=== PATIENT | female | born 1975 | race Caucasian/White ===

== ENCOUNTER → 2017-11-04 13:54 | Outpatient (CLI) | payer OTHER, SELFPAY ==
[2017-11-12 08:12] LABS: HPV HC, High Risk Positive (Negative)
[2017-11-12 08:24] LABS: HPV Reflexed? YES, CHARGE PATIENT
== END ==
PROVIDERS: Visit Provider Obstetrics & Gynecology
DX: Z12.4 Encounter for screening for malignant neoplasm of cervix (principal)
CPT/HCPCS: 87624; 88175; G0145

== ENCOUNTER → 2017-11-25 11:51 | Outpatient (CLI) | payer OTHER, SELFPAY ==
--- NOTE | 2017-11-25 11:53 | BI_ITS ---
MAMMOGRAPHY - BILATERAL SCREENING REASON FOR EXAM: Female, 42 years old. Routine annual screening examination. PERTINENT HISTORY: Grandmother with breast cancer. TECHNIQUE: Digital bilateral breast chloe (3D mammographic acquisition) in the CC and MLO projections. 2-D mediolateral oblique (MLO) and craniocaudad (CC) views of both breasts were obtained. CAD: Full Field Digital Mammography with Computer Added Detection was performed. COMPARISON: Comparison is made with prior study dated October 22, 2016. FINDINGS: Breast Composition: The breasts are almost entirely fatty. There are no dominant masses or suspicious calcifications. Stable benign-appearing bilateral axillary lymph nodes. No other significant abnormalities are identified. There has been no significant change since the prior study. BI/SCREENING MAMM (CAD), BILAT IMPRESSION: Stable bilateral screening mammogram. Yearly follow-up mammogram recommended. (A) ASSESSMENT CATEGORY: BIRADS Category 2: Benign. A letter regarding these results will be sent to the patient by the facility within 30 days. Approximately 10% of breast cancers are not detected by mammography. A normal mammogram should not delay biopsy of a clinically suspicious abnormality. [id number] Electronically Signed: Valdez Peña MD at 14:08 EDT Tel [phone], Service support ,
== END ==
PROVIDERS: Family Provider Internal Medicine; PCP Internal Medicine; Visit Provider Obstetrics & Gynecology
DX: Z12.31 Encounter for screening mammogram for malignant neoplasm of breast (principal)
CPT/HCPCS: 77063; 77067

== ENCOUNTER → 2018-05-05 11:34 | Outpatient (CLI) | payer OTHER, SELFPAY ==
[2018-05-10 08:24] LABS: HPV HC, High Risk Negative (Negative)
== END ==
PROVIDERS: Family Provider Internal Medicine; PCP Internal Medicine; Visit Provider Obstetrics & Gynecology
DX: R87.610 Atypical squamous cells of undetermined significance on cytologic smear of cervix (ASC-US) (principal)
CPT/HCPCS: 87624; 88175; G0145

== ENCOUNTER → 2018-11-29 10:18 | Outpatient (CLI) | payer OTHER, SELFPAY ==
--- NOTE | 2018-11-29 10:21 | BI_ITS ---
MAMMOGRAPHY - BILATERAL SCREENING REASON FOR EXAM: Female, 43 years old. Routine annual screening examination. PERTINENT HISTORY: Grandmother with breast cancer. TECHNIQUE: Digital bilateral breast carly (3D mammographic acquisition) in the CC and MLO projections. 2-D mediolateral oblique (MLO) and craniocaudad (CC) views of both breasts were obtained. CAD: Full Field Digital Mammography with Computer Added Detection was performed. COMPARISON: Comparison is made with prior study dated November 25, 2017. FINDINGS: Breast Composition: There are scattered areas of fibroglandular density. There are no dominant masses or suspicious calcifications. Stable small benign-appearing bilateral axillary lymph nodes. No other significant abnormalities are identified. There has been no significant change since the prior study. BI/SCREEN MAMM (CAD) W/CARLY BILAT IMPRESSION: Stable bilateral screening mammogram. Yearly follow-up mammogram recommended. (A) ASSESSMENT CATEGORY: BIRADS Category 2: Benign. A letter regarding these results will be sent to the patient by the facility within 30 days. Approximately 10% of breast cancers are not detected by mammography. A normal mammogram should not delay biopsy of a clinically suspicious abnormality. [id number] Electronically Signed: Valdez Peña, at 12:39 EDT , Service support ,
== END ==
PROVIDERS: Family Provider Internal Medicine; PCP Internal Medicine; Referring Provider Obstetrics & Gynecology; Visit Provider Obstetrics & Gynecology
DX: Z12.31 Encounter for screening mammogram for malignant neoplasm of breast (principal)
CPT/HCPCS: 77063; 77067

== ENCOUNTER → 2019-12-07 14:52 | Outpatient (CLI) | payer OTHER, SELFPAY ==
[2019-12-13 03:07] LABS: Age Gdln ACOG Testing 30-65 (.)
[2019-12-13 06:10] LABS: HPV APTIMA, High Risk Negative (Negative); HPV Reflexed? NOT INDICATED
== END ==
PROVIDERS: PCP Internal Medicine; Visit Provider Obstetrics & Gynecology
DX: Z12.4 Encounter for screening for malignant neoplasm of cervix (principal)
CPT/HCPCS: 88175; G0145

== ENCOUNTER → 2020-11-21 11:48 | Outpatient (CLI) | payer OTHER, SELFPAY ==
--- NOTE | 2020-11-21 11:50 | BI_ITS ---
MAMMOGRAPHY - BILATERAL SCREENING REASON FOR EXAM: Female, 45 years old. Routine annual screening examination. PERTINENT HISTORY: Grandmother with breast cancer. TECHNIQUE: Digital bilateral breast carly (3D mammographic acquisition) in the CC and MLO projections. 2-D mediolateral oblique (MLO) and craniocaudad (CC) views of both breasts were obtained. CAD: Full Field Digital Mammography with Computer Added Detection was performed. COMPARISON: Comparison is made with prior study dated 11/29/2018 and 11/25/2017. FINDINGS: Breast Composition: There are scattered areas of fibroglandular density. There are no dominant masses or suspicious calcifications. Stable benign appearing bilateral axillary lymph nodes. No other significant abnormalities are identified. There has been no significant change since the prior study. BI/SCRN MAMM (CAD)W/CARLY BILAT IMPRESSION: Stable bilateral screening mammogram. Yearly follow-up mammogram recommended. (A) ASSESSMENT CATEGORY: BIRADS Category 2: Benign. A letter regarding these results will be sent to the patient by the facility within 30 days. Approximately 10% of breast cancers are not detected by mammography. A normal mammogram should not delay biopsy of a clinically suspicious abnormality. [id number] Electronically Signed: Valdez Peña MD at 13:21 EDT , Service support ,
== END ==
PROVIDERS: PCP Internal Medicine; Referring Provider Student in an Organized Health Care Education/Training Program; Visit Provider Student in an Organized Health Care Education/Training Program
DX: Z12.31 Encounter for screening mammogram for malignant neoplasm of breast (principal)
CPT/HCPCS: 77063; 77067

== ENCOUNTER → 2021-11-27 | Outpatient (CLI) | payer OTHER, SELFPAY ==
--- NOTE | 2021-11-27 09:54 | BI_ITS ---
MAMMOGRAPHY - BILATERAL SCREENING 3-D TOMOSYNTHESIS REASON FOR EXAM: Female, 46 years old. Annual screening mammogram. PERTINENT HISTORY: Maternal grandmother, age not identified. TECHNIQUE: 2-D mammograms and 3-D Tomosynthesis of the breast (s) were performed. CAD was performed. COMPARISON: 11/21/2020, 11/29/2018. FINDINGS: The breast composition is almost entirely fat. Stable axillary lymph nodes. No dense spiculated masses or suspicious microcalcifications are identified. No architectural distortion is identified. There is no skin thickening or retraction. BI/SCRN MAMM (CAD)W/CARLY BILAT IMPRESSION: No interval change and no mammographic signs of malignancy. Routine yearly mammograms recommended. ASSESSMENT CATEGORY: BIRADS Category 2: Benign. A letter regarding these results will be sent to the patient by the facility within 30 days. FOLLOW UP RECOMMENDATION: Yearly follow up mammogram recommended. (A) Approximately 10% of breast cancers are not detected by mammography. A normal mammogram should not delay biopsy of a clinically suspicious abnormality. Electronically Signed: Javi Borjas MD at 15:33 EDT ,
== END | disposition home or self-care (01) ==
LOC: OPBI 09:53
PROVIDERS: PCP Internal Medicine; Referring Provider Student in an Organized Health Care Education/Training Program; Visit Provider Student in an Organized Health Care Education/Training Program
DX: Z12.31 Encounter for screening mammogram for malignant neoplasm of breast (principal)
CPT/HCPCS: 77063; 77067

== ENCOUNTER → 2022-12-04 | Outpatient (CLI) | payer OTHER, SELFPAY ==
--- NOTE | 2022-12-04 13:39 | BI_ITS ---
MAMMOGRAPHY - BILATERAL SCREENING REASON FOR EXAM: Female, 47 years old. Routine annual screening examination. PERTINENT HISTORY: Grandmother with breast cancer. TECHNIQUE: Digital bilateral breast carly (3D mammographic acquisition) in the CC and MLO projections. 2-D mediolateral oblique (MLO) and craniocaudad (CC) views of both breasts were obtained. CAD: Full Field Digital Mammography with Computer Added Detection was performed. COMPARISON: Comparison is made with prior study November 27, 2021. FINDINGS: Breast Composition: The breasts are almost entirely fatty. There are no dominant masses or suspicious calcifications. Stable small benign-appearing bilateral axillary lymph nodes. No other significant abnormalities are identified. There has been no significant change since the prior study. BI/SCRN MAMM (CAD)W/CARLY BILAT IMPRESSION: Stable bilateral screening mammogram. Yearly follow-up mammogram recommended. (A) ASSESSMENT CATEGORY: BIRADS Category 2: Benign. A letter regarding these results will be sent to the patient by the facility within 30 days. Approximately 10% of breast cancers are not detected by mammography. A normal mammogram should not delay biopsy of a clinically suspicious abnormality. [id number] Electronically Signed: Valdez Peña MD at 14:34 EDT ,
== END | disposition home or self-care (01) ==
PROVIDERS: PCP Internal Medicine; Referring Provider Student in an Organized Health Care Education/Training Program; Visit Provider Student in an Organized Health Care Education/Training Program
DX: Z12.31 Encounter for screening mammogram for malignant neoplasm of breast (principal); Z80.3 Family history of malignant neoplasm of breast
CPT/HCPCS: 77063; 77067

== ENCOUNTER → 2023-12-06 | Outpatient (CLI) | payer OTHER, SELFPAY ==
--- NOTE | 2023-12-06 15:56 | BI_ITS ---
MAMMOGRAPHY - BILATERAL SCREENING REASON FOR EXAM: Female, 48 years old. Routine annual screening examination. PERTINENT HISTORY: Grandmother with breast cancer. TECHNIQUE: Digital bilateral breast carly (3D mammographic acquisition) in the CC and MLO projections. 2-D mediolateral oblique (MLO) and craniocaudad (CC) views of both breasts were obtained. CAD: Full Field Digital Mammography with Computer Added Detection was performed. COMPARISON: Comparison is made with prior study December 04, 2022 and November 27, 2021. FINDINGS: Breast Composition: The breasts are almost entirely fatty. There are no dominant masses or suspicious calcifications. Stable small benign-appearing bilateral axillary lymph nodes. No other significant abnormalities are identified. There has been no significant change since the prior study. BI/SCRN MAMM (CAD)W/CARLY BILAT IMPRESSION: Stable bilateral screening mammogram. Yearly follow-up mammogram recommended. (A) ASSESSMENT CATEGORY: BIRADS Category 2: Benign. A letter regarding these results will be sent to the patient by the facility within 30 days. Approximately 10% of breast cancers are not detected by mammography. A normal mammogram should not delay biopsy of a clinically suspicious abnormality. [id number] Electronically Signed: Valdez Peña MD at 8:25 EDT ,
== END | disposition home or self-care (01) ==
LOC: OPBI 15:54
PROVIDERS: PCP Internal Medicine; Referring Provider Internal Medicine; Visit Provider Internal Medicine
DX: Z12.31 Encounter for screening mammogram for malignant neoplasm of breast (principal); Z80.3 Family history of malignant neoplasm of breast
CPT/HCPCS: 77063; 77067

== ENCOUNTER → 2024-12-21 | Outpatient (CLI) | payer OTHER, SELFPAY ==
--- NOTE | 2024-12-21 07:23 | BI_ITS ---
EXAM: SCRN MAMM (CAD)W/CARLY BILAT DATE: 12/21/2024 CLINICAL HISTORY: F, Age 49 y/o , SCREENING Grandmother with breast cancer. TECHNIQUE: SCRN MAMM (CAD)W/CARLY BILAT COMPARISON: Prior exam(s) dated December 07, 2023.. FINDINGS: TISSUE DENSITY: The breasts are almost entirely fatty. Bilateral Breast Mammographic Findings: No significant masses, calcifications or other abnormalities are identified. Stable small benign-appearing bilateral axillary lymph nodes. No suspicious masses, areas of developing architectural distortion, or suspicious calcifications. There has been no significant interval change. BI/SCRN MAMM (CAD)W/CARLY BILAT IMPRESSION: Stable bilateral screening mammogram. OVERALL FINAL ASSESSMENT BI-RADS 2: BENIGN RECOMMENDATION: Routine annual follow-up in 1 Year A letter with findings and recommendations will be mailed to the patient. Reading Location: [id number]
--- OUTSIDE RECORDS SUMMARY | 2024-12-21 07:23 | XMS RPT_ITS | CCD ---
Author Organization [facility] Care Team Providers Care Sales Representative Advertising Name Role Phone YULIANA, DR ANG Beckett Attending Unavaila ble YULIANA, DR ANG Beckett Primary Care Unavaila ble YULIANA, DR ANG Beckett Admitting Unavaila ble Chance Harrell MD Primary Care Provider Chance Harrell MD Primary Care Provider Mccray STRANDING MACHINE OPERATOR HELPER.QUANTITATIVE ANALYST, Daina Unavailable Pedro Luis STRANDING MACHINE OPERATOR HELPER.WEDGER, Aby Unavailable Mccray STRANDING MACHINE OPERATOR HELPER.QUANTITATIVE ANALYST, Daina Unavailable Mccray STRANDING MACHINE OPERATOR HELPER.QUANTITATIVE ANALYST, Daina Unavailable GUANAKITO CHANCE Hannah Referring Unavailable TALAMPAS, CHANCE D Primary Care Unavailable TALAMPELIAS CHANCE D Attending Unavailable TALAMPAS, CHANCE D Primary Care Unavailable TALAMPAS, CHANCE D Primary Care Unavailable KELLY ARMENDARIZ Attending Unavailable Talampelias Chance D Referring Unavailable Talampas Chance D Attending Unavailable Talampelias Chance D Primary Care Unavailable Medications Current Medications Medication Drug Class(es) Dates Sig (Normalized) Sig (Original) amLODIPine 5 mg oral tablet (17 sources) Dihydropyridine Calcium Channel Marni Start: 05-20-19 22 End: 08-30-19 25 take 1 tablet by mouth once daily amLODIPine (NORVASC) 5 mg tablet Indications: Essential hypertension , Encounter for long-term current use of medication Take 1 tablet by mouth once daily. 90 tablet 3 08/30/2024 Active Comment on above: Take 1 tablet by leticia once daily. methylPREDNISolone (1 source) Corticosteroid Start: 10-14-19 23 End: 10-20-19 23 methylPREDNISolone (MEDROL, LES,) 4 mg Dose-Pack Indications: Post-nasal drainage , Acute effusion of right ear Follow dosing instructions, take with food. 21 tablet 0 10/13/2022 10/19/2022 Active Comment on above: Follow dosing instru ctions, take with food. nitrofurantoin, macrocrystals 25 mg / nitrofurantoin, monohydrate 75 mg oral capsule (1 source) Nitrofuran Antibacterial Start: 08-13-19 End: 08-18-19 take 1 capsule by mouth twice daily nitrofurantoin monohydrate and macrocrystal (MACROBID) 100 mg capsule Indications: Urinary tract infection with hematuria, site unspecified Take 1 capsule by mouth two times a day for 5 days. 10 capsule 08/12/2024 08/17/2024 Active norethindrone 0.35 mg oral tablet (13 sources) Start: 07-28-19 End: 08-30-19 take 1 tablet by mouth once daily Norethindrone, Contraceptive, 0.35 mg tablet Take 1 tablet by mouth once daily. 84 tablet 4 08/30/2024 Active Comment on above: Take 1 tablet by leticia th once daily. Problems Active Problems Problem Classification Problem Date Documented Date Episodic/Chronic Essential hypertension (17 sources) Essential hypertension; Translations: [Essential (primary) hypertension] Onset: 04-18-2018 Chronic Other aftercare (5 sources) Patient encounter status; Translations: [Other half-way (current) drug therapy] Episodic Other aftercare (1 source) Long-term current use of drug therapy; Translations: [Other exterminator termite (current) drug therapy] 08-29-2024 Episodic Other aftercare (1 source) Other exterminator termite (current) drug therapy; Translations: [Encounter for long-term current use of medication] Onset: 12-09-2024 Episodic Other nutritional; endocrine; and metabolic disorders (12 sources) Obese class I; Translations: [Obesity, unspecified] Onset: 05-08-2018 05-08-2018 Chronic Other screening for suspected conditions (not mental disorders or infectious disease) (2 sources) Encounter for screening for malignant neoplasm of cervix; Translations: [Encounter for screening mammogram for malignant neoplasm of breast] Onset: 12-08-2024 Episodic Other upper respiratory disease (12 sources) Allergic rhinitis; Translations: [Allergic rhinitis, unspecified] Onset: 08-20-2005 08-20-2005 Chronic Other upper respiratory infections (1 source) Nasal discharge; Translations: [Postnasal drip] Episodic Otitis media and related conditions (1 source) Acute transudative otitis media; Translations: [Other acute nonsuppurative otitis media, right ear] Episodic Screening and history of mental health and substance abuse codes (2 sources) Encounter for screening examination for other mental health and behavioral disorders; Translations: [Encounter for screening for depression] Onset: 12-08-2024 Episodic Unclassified (1 source) CONTACT WITH AND SUSPECTED EXPOSURE TO COVID-19; Translations: [CONTACT WITH AND SUSPECTED EXPOSURE TO COVID-19] Onset: 01-03-2021 Viral infection (1 source) COVID-19; Translations: [COVID-19] Onset: 01-03-2021 Past or Other Problems Problem Classification Problem Date Documented Da te Episodic/Chronic Genitourinary symptoms and ill-defined conditions (3 sources) Scalding pain on urination ; Translations: [Dysuria] Onset: 08-12-2024 08-12-2024 Episodic Open wounds of extremities (12 sources) Avulsion of toenail; Translations: [Unspecified open wound of unspecified toe(s) with damage to nail, initial encounter] Onset: 07-02-2011 07-02-2011 Episodic Unclassified (1 source) CONTACT WITH AND SUSPECTED EXPOSURE TO COVID-19; Translations: [CONTACT WITH AND SUSPECTED EXPOSURE TO COVID-19] Onset: 01-03-2021 Unclassified (1 source) Patient encounter status 11-23-2024 Urinary tract infections (2 sources) Urinary tract infectious disease; Translations: [Urinary tract infection, site not specified] Onset: 08-12-2024 08-12-2024 Episodic Results Test Name Value Interpretation Reference Range Facility CBC panel Auto (Bld)on 12-09 Erythrocyte distribution width (RBC) [Ratio] 13.6 % Normal 11.5-15.0 [facility] Comment on above: Order Comment: Speci men Type: BLOOD SPECIMEN Ordering Facility: [facility] Address: [address] [place] [address] Performed By: #### 5 8410-2 #### [facility] CLIA [id number] [address] [place] [address] [place] Hematocrit (Bld) [Volume fraction] 41.3 % Normal 36.0-46.0 [facility] Comment on above: Order Comment: Speci men Type: BLOOD SPECIMEN Ordering Facility: [facility] Address: [address] [place] [address] Performed By: #### 5 8410-2 #### [facility] CLIA [id number] [address] [place] [address] [place] Hemoglobin (Bld) [Mass/Vol] 13.7 g/dL Normal 11.5-15.5 [facility] Comment on above: Order Comment: Speci men Type: BLOOD SPECIMEN Ordering Facility: [facility] Address: [address] [place] [address] Performed By: #### 5 8410-2 #### [facility] CLIA [id number] [address] [place] [address] [place] MCH (RBC) [Entitic mass] 29.8 pg Normal 26.0-34.0 [facility] Comment on above: Order Comment: Speci men Type: BLOOD SPECIMEN Ordering Facility: [facility] Address: [address] [place] [address] Performed By: #### 5 8410-2 #### [facility] CLIA [id number] [address] [place] [address] [place] MCHC (RBC) [Mass/Vol] 33.2 g/dL Normal 30.5-36.0 [facility] Comment on above: Order Comment: Speci men Type: BLOOD SPECIMEN Ordering Facility: [facility] Address: [address] [place] [address] Performed By: #### 5 8410-2 #### [facility] CLIA [id number] [address] [place] [address] [place] MCV (RBC) [Entitic vol] 90.0 fL Normal 80.0-100.0 [facility] Comment on above: Order Comment: Speci men Type: BLOOD SPECIMEN Ordering Facility: [facility] Address: [address] [place] [address] Performed By: #### 5 8410-2 #### [facility] CLIA [id number] [address] [place] [address] [place] Nucleated RBC (Bld) [#/Vol] 10*3/uL Normal <0.01 [facility] Comment on above: Order Comment: Speci men Type: BLOOD SPECIMEN Ordering Facility: [facility] Address: [address] [place] [address] Performed By: #### 5 8410-2 #### [facility] CLIA [id number] [address] [place] [address] [place] Platelet mean volume (Bld) [Entitic vol] 11.5 fL Normal 9.0-12.7 [facility] Comment on above: Order Comment: Speci men Type: BLOOD SPECIMEN Ordering Facility: [facility] Address: [address] [place] [address] Performed By: #### 5 8410-2 #### [facility] CLIA [id number] [address] [place] [address] [place] Platelets (Bld) [#/Vol] 255 10*3/uL Normal 150-400 [facility] Comment on above: Order Comment: Speci men Type: BLOOD SPECIMEN Ordering Facility: [facility] Address: [address] [place] [address] Performed By: #### 5 8410-2 #### [facility] CLIA [id number] [address] [place] [address] [place] RBC (Bld) [#/Vol] 4.59 10*6/uL Normal 3.90-5.20 [facility] Comment on above: Order Comment: Speci men Type: BLOOD SPECIMEN Ordering Facility: [facility] Address: [address] [place] [address] Performed By: #### 5 8410-2 #### [facility] CLIA [id number] [address] [place] [address] [place] WBC (Bld) [#/Vol] 5.12 10*3/uL Normal 3.70-11.00 [facility] Comment on above: Order Comment: Speci men Type: BLOOD SPECIMEN Ordering Facility: [facility] Address: [address] [place] [address] Performed By: #### 5 8410-2 #### [facility] CLIA [id number] [address] [place] [address] [place] Comprehensive metabolic 2000 panelon 12-09-2024 Albumin [Mass/Vol] 4.1 g/dL Normal 3.9-4.9 [facility] Comment on above: Order Comment: Speci men Type: BLOOD SPECIMEN Ordering Facility: [facility] Address: [address] [place] [address] Performed By: #### 2 4331-1, 20570-7 #### [facility] CLIA [id number] [address] [place] [address] [place] ALP [Catalytic activity/Vol] 82 U/L Normal 34-123 [facility] Comment on above: Order Comment: Speci men Type: BLOOD SPECIMEN Ordering Facility: [facility] Address: [address] [place] [address] Performed By: #### 2 4331-1, 99355-9 #### [facility] CLIA [id number] [address] [place], [place] [address] [place] ALT [Catalytic activity/Vol] 12 U/L Normal 7-38 [facility] Comment on above: Order Comment: Speci men Type: BLOOD SPECIMEN Ordering Facility: [facility] Address: [address] [place] [address] Performed By: #### 2 4331-1, 12797-6 #### [facility] CLIA [id number] [address] [place], [place] [address] [place] Anion gap [Moles/Vol] 13 mmol/L Normal 8-15 [facility] Comment on above: Order Comment: Speci men Type: BLOOD SPECIMEN Ordering Facility: [facility] Address: [address] [place] [address] Performed By: #### 2 4331-1, 77185-0 #### [facility] CLIA [id number] [address] [place] [address] [place] AST [Catalytic activity/Vol] 21 U/L Normal 13-35 [facility] Comment on above: Order Comment: Speci men Type: BLOOD SPECIMEN Ordering Facility: [facility] Address: [address] [place] [address] Performed By: #### 2 4331-1, 07987-1 #### [facility] CLIA [id number] [address] [place] [address] [place] Bilirubin [Mass/Vol] 0.5 mg/dL Normal 0.2-1.3 [facility] Comment on above: Order Comment: Speci men Type: BLOOD SPECIMEN Ordering Facility: [facility] Address: [address] [place] [address] Performed By: #### 2 4331-1, 55864-3 #### [facility] CLIA [id number] [address] [place] [address] [place] Calcium [Mass/Vol] 9.1 mg/dL Normal 8.5-10.2 [facility] Comment on above: Order Comment: Speci men Type: BLOOD SPECIMEN Ordering Facility: [facility] Address: [address] [place] [address] Performed By: #### 2 4331-1, 06624-8 #### [facility] CLIA [id number] [address] [place], [place] [address] [place] Chloride [Moles/Vol] 103 mmol/L Normal 98-107 [facility] Comment on above: Order Comment: Speci men Type: BLOOD SPECIMEN Ordering Facility: [facility] Address: [address] [place] [address] Performed By: #### 2 4331-1, 62034-2 #### [facility] CLIA [id number] [address] [place], [place] [address] [place] CO2 [Moles/Vol] 21 mmol/L Low 22-30 [facility] Comment on above: Order Comment: Speci men Type: BLOOD SPECIMEN Ordering Facility: [facility] Address: [address] [place] [address] Performed By: #### 2 4331-1, 59296-0 #### [facility] CLIA [id number] [address] [place] [address] [place] Creatinine [Mass/Vol] 0.91 mg/dL Normal 0.58-0.96 [facility] Comment on above: Order Comment: Speci men Type: BLOOD SPECIMEN Ordering Facility: [facility] Address: [address] [place] [address] Performed By: #### 2 4331-1, 79692-1 #### [facility] CLIA [id number] [address] [place] [address] [place] eGFRcr SerPlBld CKD-EPI 2020 77 mL/min/1.73m??? Normal >=60 [facility] Comment on above: Order Comment: Speci men Type: BLOOD SPECIMEN Ordering Facility: [facility] Address: [address] [place] [address] Result Comment: Vivi mated Glomerular Filtration Rate (eGFR) is calculated using the 2020 CKD-EPI creatinine equation. This equation utilizes serum creatinine, sex, and age as parameters. The creatinine assay has traceable calibration to isotope dilution-mass spectrometry. Refer to KDIGO guidelines for clinical interpretation. In patients with unstable renal function, e.g. those with acute kidney injury, the eGFR may not accurately reflect actual GFR. Performed By: #### 2 4331-1, 70109-7 #### [facility] CLIA [id number] [address] [place], [place] [address] [place] Glucose [Mass/Vol] 86 mg/dL Normal 74-99 [facility] Comment on above: Order Comment: Speci men Type: BLOOD SPECIMEN Ordering Facility: [facility] Address: [address] [place] [address] Result Comment: The Stateless Diabetes Association (ADA) provides guidance for cutoff values for fasting glucose and random glucose. The ADA defines fasting as no caloric intake for at least 8 hours. Fasting plasma glucose results between 100 to 125 mg/dL indicate increased risk for diabetes (prediabetes). Fasting plasma glucose results greater than or equal to 126 mg/dL meet the criteria for diagnosis of diabetes. In the absence of unequivocal hyperglycemia, results should be confirmed by repeat testing. In a patient with classic symptoms of hyperglycemia or hyperglycemic crisis, random plasma glucose results greater than or equal to 200 mg/dL meet the criteria for diagnosis of diabetes. Reference: Standards of Medical Care in Diabetes 2016, Stateless Diabetes Association. Diabetes Care. 2016.39(Suppl 1). Performed By: #### 2 4331-1, 25291-4 #### [facility] CLIA [id number] [address] [place] [address] [place] Potassium [Moles/Vol] 4.5 mmol/L Normal 3.7-5.1 [facility] Comment on above: Order Comment: Ashai men Type: BLOOD SPECIMEN Ordering Facility: [facility] Address: [address] [place] [address] Performed By: #### 2 4331-1, 77176-9 #### [facility] CLIA [id number] [address] [place], [place] [address] [place] Protein [Mass/Vol] 6.7 g/dL Normal 6.3-8.0 [facility] Comment on above: Order Comment: Ashai men Type: BLOOD SPECIMEN Ordering Facility: [facility] Address: [address] [place], [place] [address] Performed By: #### 2 4331-1, 75832-2 #### [facility] CLIA [id number] [address] [place], [place] [address] [place] Sodium [Moles/Vol] 137 mmol/L Normal 136-144 [facility] Comment on above: Order Comment: Speci men Type: BLOOD SPECIMEN Ordering Facility: [facility] Address: [address] [place] [address] Performed By: #### 2 4331-1, 02926-9 #### [facility] CLIA [id number] [address] [place] [address] [place] Urea nitrogen [Mass/Vol] 16 mg/dL Normal 7-21 [facility] Comment on above: Order Comment: Speci men Type: BLOOD SPECIMEN Ordering Facility: [facility] Address: [address] [place] [address] Performed By: #### 2 4331-1, 60468-4 #### [facility] CLIA [id number] [address] [place] [address] [place] Lipid 1996 panelon 5 Cholesterol [Mass/Vol] 184 mg/dL Normal <200 [facility] Comment on above: Order Comment: Speci men Type: BLOOD SPECIMEN Ordering Facility: [facility] Address: [address] [place] [address] Result Comment: <200 mg/dL, Desirable 200-239 mg/dL, Borderline high >239 mg/dL, High Performed By: #### 2 4331-1, 90260-3 #### [facility] CLIA [id number] [address] [place], [place] [address] [place] Cholesterol in HDL [Mass/Vol] 48 mg/dL Normal >39 [facility] Comment on above: Order Comment: Speci men Type: BLOOD SPECIMEN Ordering Facility: [facility] Address: [address] [place] [address] Result Comment: 40-5 9 mg/dL, Acceptable >59 mg/dL, High: Negative risk factor for coronary heart disease <40 mg/dL, Low: Positive risk factor for coronary heart disease Performed By: #### 2 4331-1, 17762-3 #### [facility] CLIA [id number] [address] [place] [address] [place] Cholesterol in LDL [Mass/Vol] 124 mg/dL High <100 [facility] Comment on above: Order Comment: Speci men Type: BLOOD SPECIMEN Ordering Facility: [facility] Address: [address] [place] [address] Result Comment: <100 mg/dL, Optimal 100-129 mg/dL, Near optimal/above optimal 130-159 mg/dL, Borderline high 160-189 mg/dL, High >189 mg/dL, Very high Secondary prevention optimal LDL Cholesterol levels are recommended to be <70 mg/dL LDL cholesterol is calculated using the Kang-NIH equation. Performed By: #### 2 4331-1, #### [facility] CLIA [id number] [address] [place] [address] [place] Cholesterol in LDL/Cholesterol in HDL [Mass ratio] 2.58 {ratio} High <2.54 [facility] Comment on above: Order Comment: Ashai men Type: BLOOD SPECIMEN Ordering Facility: [facility] Address: [address] [place] [address] Result Comment: Refe rence: 1. National Cholesterol Education Program ATP III Guideline At-A-Glance Quick Desk Reference: National Heart, Lung, and Blood [place]. National Institutes of Health. 2001: NIH Publication No. 01-3305. 2. An International Atherosclerosis Society position paper: global recommendations for the management of dyslipidemia: executive summary, Atherosclerosis. 2014: 232(2):410-413. Performed By: #### 2 4331-1, 87595-7 #### [facility] CLIA [id number] [address] [place] [address] [place] Cholesterol in VLDL [Mass/Vol] 11 mg/dL Normal <30 [facility] Comment on above: Order Comment: Ashai men Type: BLOOD SPECIMEN Ordering Facility: [facility] Address: [address] [place] [id number] Performed By: #### 2 4331-1, #### [facility] CLIA [id number] [address] [place], [place] [address] [place] Cholesterol non HDL [Mass/Vol] 136 mg/dL High <130 [facility] Comment on above: Order Comment: Speci men Type: BLOOD SPECIMEN Ordering Facility: [facility] Address: [address] [place] [address] Result Comment: <130 mg/dL, Optimal 130-159 mg/dL, Near optimal/above optimal 160-189 mg/dL, Borderline high 190-219 mg/dL, High >219 mg/dL, Very high Secondary prevention optimal non HDL Cholesterol levels are recommended to be <100 mg/dL Performed By: #### 2 4331-1, #### [facility] CLIA [id number] [address] [place] [address] [place] Cholesterol.total/Ch olesterol in HDL [Mass ratio] 3.83 {ratio} Normal <5.10 [facility] Comment on above: Order Comment: Speci men Type: BLOOD SPECIMEN Ordering Facility: [facility] Address: [address] [place] [address] Performed By: #### 2 4331-1, #### [facility] CLIA [id number] [address] [place] [address] [place] FASTING TIME 12 hrs Normal [facility] Comment on above: Order Comment: Speci men Type: BLOOD SPECIMEN Ordering Facility: [facility] Address: [address] [place], [place] [address] Performed By: #### 2 4331-1, #### [facility] CLIA [id number] [address] [place] [address] [place] Triglyceride [Mass/Vol] 64 mg/dL Normal <150 [facility] Comment on above: Order Comment: Speci men Type: BLOOD SPECIMEN Ordering Facility: [facility] Address: [address] [place] [address] Result Comment: <150 mg/dL, Normal 150-199 mg/dL, Borderline high 200-499 mg/dL, High >499 mg/dL, Very high Performed By: #### 2 4331-1, 43001-4 #### [facility] CLIA [id number] [address] [place] [address] [facility] [place] HIGH RISK HUMAN [place] GUY (HPV), PCR FOR DETECTION AND GENOTYPINGon 12-08-2024 HPV 16 Ag Ql (Unsp spec) Not detected Normal Not detected [facility] Comment on above: Order Comment: Speci men Type: FLUID SPECIMEN Ordering Facility: [facility] Address: [address] [place] [address] Performed By: #### H PVHRT #### [facility] CLIA [id number] [address] [place] [address] [place] HPV 18 Ag Ql (Unsp spec) Not detected Normal Not detected [facility] Comment on above: Order Comment: Speci men Type: FLUID SPECIMEN Ordering Facility: [facility] Address: [address] [place] [address] Performed By: #### H PVHRT #### [facility] CLIA [id number] [address] [place] [address] [place] HPV 31+33+35+39+45+51+52 +56+58+59+66+68 DNA TOYA+probe Ql (Cvx) Not detected Normal Not detected [facility] Comment on above: Order Comment: Speci men Type: FLUID SPECIMEN Ordering Facility: [facility] Address: [address] [place] [address] Result Comment: High Risk HPV Other Type includes HPV types 31, 33, 35, 39, 45, 51, 52, 56, 58, 59, 66 and 68. Performed By: #### H PVHRT #### [facility] CLIA [id number] [address] [place] [address] [place] PAP TESTon 12-08-2024 ADEQUACY Normal [facility] Comment on above: Order Comment: Speci men Type: FLUID SPECIMEN Ordering Facility: [facility] Address: [address] [place] [address] Result Comment: Sati sfactory for interpretation. Transformation zone present Performed By: #### L [id number] #### [facility] CLIA [id number] [address] [place] [address] [place] CASE REPORT Normal [facility] Comment on above: Order Comment: Speci men Type: FLUID SPECIMEN Ordering Facility: [facility] Address: [address] [place] [address] Result Comment: Gyne [facility] Report Case: [id number] Authorizing Provider: Chance Harrell MD Collected: 12/08/2024 05:28 PM Ordering Location: [facility] [place] Received: 12/09/2024 07:35 AM First Screen: Surekha Cordero, CT, ASCP Specimen: Pap Test, ThinPrep, Cervix Performed By: #### L [id number] #### [facility] CLIA [id number] [address] [place] [address] [place] CLINICAL HISTORY, CYTOLOGY, REGULATORY INTERNSHIP Routine Exam Normal [facility] Comment on above: Order Comment: Speci men Type: FLUID SPECIMEN Ordering Facility: [facility] Address: [address] [place] [address] Performed By: #### L [id number] #### [facility] CLIA [id number] [address] [place] [address] [place] FINAL PERFORMING LAB Normal [facility] Comment on above: Order Comment: Speci men Type: FLUID SPECIMEN Ordering Facility: [facility] Address: [address] [place] [address] Result Comment: Tech nical component, dye expert screening performed at: [facility], [address] [place] [address] CLIA: [id number] Diagnostic interpretation performed at: [facility], [address] [place] [address] [place] [address] CLIA# [id number] Comber Setter: Claus Antoine MD Performed By: #### L [id number] #### [facility] CLIA [id number] [address] [place] [address] [place] INTERPRETATION, CYTOLOGY, REGULATORY INTERNSHIP Normal [facility] Comment on above: Order Comment: Speci men Type: FLUID SPECIMEN Ordering Facility: [facility] Address: [address] [place], [place] [id number] Result Comment: Nega tive for intraepithelial lesion or malignancy. at 1251 EDT Performed By: #### L [id number] #### [facility] CLIA [id number] [address] [place] [address] [place] LMP 11/01/2024 Normal [facility] Comment on above: Order Comment: Speci men Type: FLUID SPECIMEN Ordering Facility: [facility] Address: [address] [place] [address] Performed By: #### L [id number] #### [facility] CLIA [id number] [address] [place] [address] [place] PAP DISCLAIMER COMMENT The Pap Smear is a screening test for cervical cancer. False negative results occur with all screening tests, emphasizing the need for rescreening at recommended intervals, and clinical correlation. Normal [facility] Comment on above: Order Comment: Speci men Type: FLUID SPECIMEN Ordering Facility: [facility] Address: [address] [place], [place] [id number] Performed By: #### L [id number] #### [facility] CLIA [id number] [address] [place] [address] [place] PAP CLEAT MAKER COMMENT This specimen has be en analyzed by the FDA-approved Capt[employer]nSocial System, which uses digital imaging and an enhanced artificial intelligence image analysis algorithm to identify lester of interest on the microscopic slide, to assist the technician terminal and repeater and pathologist in evaluating cells on ThinPrep Pap tests. Following analysis, lester of interest on the microscopic slide selected by the algorithm are reviewed by a technician terminal and repeater. If a sample requires hierarchical review, the pathologist will review the same lester of interest selected by the algorithm prior to final interpretation. Normal [facility] Comment on above: Order Comment: Speci men Type: FLUID SPECIMEN Ordering Facility: [facility] Address: [address] [place] [address] Performed By: #### L [id number] #### [facility] CLIA [id number] [address] [place] [address] [facility] 11-23-2024 CNPN Telephone (INTMWS) DIVYA SKELTON ([id number]) 1975 F Date Time Provider Department 11/23/24 CHANCE HARRELL INTWS During your visit today, we recorded the following information about you: Chinedu Butcher RN 11/23/2024 11:01 AM Signed Pt requesting mammogram order to be sent over to [facility]. Order pended. Pt would like to get it scheduled as close to 12/05/24 as possible. Please call pt when order has been faxed over. Chinedu Butcher RN 11/23/2024 4:34 PM Signed Demographics sheet and order faxed over to [facility] scheduling [phone]. Called and notified pt that order was faxed. Allergies As of Date: 11/23/2024 (No Known Allergies) Date Reviewed: 08/12/2024 Reviewed by: Thuy Larkin LPN - Fully Assessed Reason for Visit: Orders [681] Cmt: Mammogram for [facility] Primary Visit Diagnosis:Encounter for screening mammogram for breast cancer [Z12.31] Order(s):AAYUSH CARROLL [[id number]] Order #: [id number] FUTURE Prescriptions as of 11/23/2024 - Norethindrone, Contraceptive, 0.35 mg tablet Take 1 tablet by mouth once daily. - amLODIPine (NORVASC) 5 mg tablet Take 1 tablet by mouth once daily. Problem List As Of Date 11/23/2024 Noted Resolved ALLERGIC RHINITIS NOS [J30.9] 08/20/2005 Avulsion of toenail [S91.209A] 07/02/2011 Essential hypertension [I10] 04/18/2018 Obesity, Class I, BMI 30-34.9 [E66.811] 05/08/2018 Encounter Status:Closed by CHINEDU BUTCHER on 11/23/24 [facility] Bacteria Ur Culton Bacteria identified Cx Nom (U) ORGANISM ID: 1 >=100,000 CFU/ml Escherichia coli ORGANISM ID: 1 (ESCHERICHIA COLI) -- ANTIBIOTIC INTERPRETATION SEYMOUR STATUS REFERENCE RANGE -- Ampicillin S <=2 F Susceptible <=8 , Intermediate >8 , Resistant >16 Cefazolin S <=4 F Susceptible 0-16 , Intermediate <0 or >16 , Resistant >16 For uncomplicated urinary tract infections, cefazolin results can be used to predict susceptibility or resistance to cephalexin. Ceftriaxone S <=1 F Susceptible <=1 , Intermediate >1 , Resistant >=4 Cefepime S <=1 F Susceptible <=2 , Susceptible-Dose Dependent >2 , Resistant >=16 Ertapenem S <=0.5 F Susceptible <=0.5 , Intermediate >.5 , Resistant >1 Meropenem S <=0.25 F Susceptible <=1 , Intermediate >1 , Resistant >2 Ampicillin/Sulbact S <=2 F Susceptible <=8 , Intermediate >8 , Resistant >16 Piperacillin/Tazobac S <=4 F Susceptible <16 , Susceptible-Dose Dependent >=16 , Resistant >=32 Gentamicin S <=1 F Susceptible <=2 , Intermediate >2 , Resistant >=8 Tobramycin S <=1 F Susceptible <4 , Intermediate >=4 , Resistant >=8 Trimeth sulfameth S <=20 F Susceptible <=40 , Resistant >40 Ciprofloxacin S <=0.25 F Susceptible <0.5 , Intermediate >=.5 , Resistant >=1 Nitrofurantoin S <=16 F Susceptible <=32 , Intermediate >32 , Resistant >64 Abnormal [facility] Comment on above: Performed By: #### 6 30-4 #### [facility] CLIA [id number] [address] [place] [address] [facility] CNOVon 08-12-2024 CNOV Office Visit (UCWSTR ) DIVYA SKELTON ([id number]) 1975 F Date Time Provider Department 08/12/24 8:30 AM KELLY ARMENDARIZ [facility] During your visit today, we recorded the following information about you: Temperature Pulse Respiration Blood pressure 98.1 degrees 89/minute 16/minute 142/80 Weight 95.8 kg Kelly Armendariz APRN.WEDGER 08/12/2024 9:09 AM Signed [facility] Subjective Divya Skelton is a 48 year old female. Patient presents with: burning with urination: Burning x 3 days HPI Divya Skelton is a 48 year old female who presents with UTI symptoms for the past 3 days. She took cranberry pills and AZO and symptoms are slightly better today. She has not had fever, chills, nausea, vomiting, back pain or abdominal pain. Review of Systems Constitutional: Negative for chills and fever. Respiratory: Negative. Cardiovascular: Negative. Gastrointestinal: Negative for abdominal pain, nausea and vomiting. Genitourinary: Positive for dysuria, frequency and urgency. Negative for difficulty urinating, flank pain and hematuria. Musculoskeletal: Negative for back pain. Skin: Negative for rash. Objective BP 142/80 Pulse 89 Temp 36.7 ?C (98.1 ?F) (Tympanic) Resp 16 Wt 95.8 kg (211 lb 3.2 oz) LMP 09/08/2022 (Approximate) SpO2 100% BMI (P) 35.69 kg/m? PAST MEDICAL HISTORY Diagnosis Date - ALLERGIC RHINITIS NOS 08/20/2005 - Essential hypertension 04/18/2018 PAST SURGICAL HISTORY Procedure Laterality Date - DELIVERY ONLY , low cervical - COLONOSCOPY 07/23/2021 repeat in 10 years ALLERGIES Patient has no known allergies. MEDICATIONS - Norethindrone, Contraceptive, 0.35 mg tablet Take 1 tablet by mouth once daily. - amLODIPine (NORVASC) 5 mg tablet Take 1 tablet by mouth once daily. - nitrofurantoin monohydrate and macrocrystal (MACROBID) 100 mg capsule Take 1 capsule by mouth two times a day for 5 days. FAMILY HISTORY Problem Relation Age of Onset - Diabetes Father on insulin - Colon Polyps Sister ?TA since had to do after 1 year - Breast Cancer Maternal Grandmother Social History Tobacco Use - Smoking status: Never - Smokeless tobacco: Never Substance Use Topics - Alcohol use: Yes Comment: rare use, no current - Drug use: No Physical Exam Vitals and nursing note reviewed. Constitutional: General: She is not in acute distress. Appearance: Normal appearance. She is not ill-appearing. Cardiovascular: Rate and Rhythm: Normal rate and regular rhythm. Heart sounds: Normal heart sounds. Pulmonary: Effort: Pulmonary effort is normal. No respiratory distress. Breath sounds: Normal breath sounds. No wheezing or rales. Abdominal: General: There is no distension. Palpations: Abdomen is soft. There is no mass. Tenderness: There is no abdominal tenderness. There is no right CVA tenderness, left CVA tenderness or guarding. Skin: General: Skin is warm and dry. Neurological: Mental Status: She is alert. {ASSESSMENT/PLAN: 1. Burning with urination - ICD9: 788.1, ICD10: R30.0 (primary diagnosis) acute - UA positive for stephan esterase, hematuria, and nitrates - Send urine for culture - Begin treatment with Macrobid 100 mg BID for 5 days - UA DIP, URINE (POC) 2. Urinary tract infection with hematuria, site unspecified - ICD9: 599.0, 599.70, ICD10: N39.0, R31.9 - NITROFURANTOIN MONOHYDRATE AND MACROCRYSTAL 100 MG ORAL CAP - Follow-up with your PCP in 3-5 days if symptoms have not improved or sooner if symptoms worsen - Discussed red flags and need for immediate medical evaluation if any occur. - Discussed supportive care treatment with fluids, rest and analgesia. - Discussed expected course of illness Kelly Armendariz APRN.CNP History and Record Review External record(s) reviewed: prior labs/imaging. Findings from review of prior labs/imaging: Previous Renal Function Panel Reviewed No results within last 365 days. Disposition The patient was discharged. OTC Medications were advised: Kelly Thomas APRN.CNP 08/12/2024 9:01 AM Addendum ASSESSMENT/PLAN: 1. Burning with urination - ICD9: 788.1, ICD10: R30.0 (primary diagnosis) acute - UA positive for stephan esterase, hematuria, and nitrates - Send urine for culture - Begin treatment with Macrobid 100 mg BID for 5 days - UA DIP, URINE (POC) 2. Urinary tract infection with hematuria, site unspecified - ICD9: 599.0, 599.70, ICD10: N39.0, R31.9 - NITROFURANTOIN MONOHYDRATE AND MACROCRYSTAL 100 MG ORAL CAP - Follow-up with your PCP in 3-5 days if symptoms have not improved or sooner if symptoms worsen - Discussed red flags and need for immediate medical evaluation if any occur. - Discussed supportive care treatment with fluids, rest and analgesia. - Discussed expected course of illness Kelly Armendariz APRN.CNP (more content not included)... Normal [facility] UA DIP, URINE (POC)on 2024 BILIRUBIN UA (POCT) Negative Negative [facility] CLARITY UA (POCT) Clear [facility] COLOR UA (POCT) Yellow [facility] GLUCOSE UA (POCT) Negative Negative mg/dL [facility] Hemoglobin Ql (U) Moderate Abnormal Negative [facility] Interpretation and review of laboratory results Abnormal [facility] KETONE UA (POCT) Negative Negative mg/dL [facility] LEUKOCYTES UA (POCT) Small Abnormal Negative [facility] NITRITE UA (POCT) Positive Abnormal Negative [facility] PH UA (POCT) 5.5 4.5 - 8.0 [facility] Protein Ql (U) Negative Negative mg/dL [facility] SPECIFIC GRAVITY UA (POCT) <=1.005 Abnormal 1.005 - 1.030 [facility] UROBILINOGEN UA (POCT) 0.2 Normal E.U./dL [facility] Location:[address] POINT OF CARE [facility] CORONAVIRUS PCR [CCL]on 12-25 SARS-CoV-2 (COVID-19) RNA TOYA+probe Ql (Unsp spec) Nasopharyngeal Swab Normal [facility] Comment on above: Performed By: #### 2 [id number] #### [facility],[address] [place] [address] SARS-CoV-2 (COVID-19) RNA TOYA+probe Ql (Unsp spec) Positive Abnormal [facility] Comment on above: Result Comment: Posi tive for COVID19 (SARS CoV2) by RT-PCR or equivalent method.(*) This test was developed and its performance characteristics determined by [facility]'s [facility] and [facility] [place]. This test has been authorized by FDA under an Emergency Use Authorization (EUA). This test has been validated in accordance with the FDA's Guidance Document Policy for Diagnostics Testing in Laboratories Certified to Perform High Complexity Testing under CLIA prior to Emergency use Authorization for Coronavirus Disease 2019 during the Public Health Emergency issued on June 24, 2019. Test performed by [facility], [facility] [place], [address] [address]. Performed By: #### 2 [id number] #### [facility],[address] [place] [address] Coronavirus 2019on 1 SARS-CoV-2 (COVID-19) RNA TOYA+probe Ql (Unsp spec) Abnormal Negative for COVID19 (SARS CoV2) by RT-PCR or equival [facility] Comment on above: Result Comment: Posi tive for This test was developed and its performance characteristics determined by [facility]'s [facility] Laboratory [facility]. This test has been authorized by [facility] under an Emergency Use Authorization (EUA). This test has been validated in accordance with the FDA's Guidance Document Policy for Diagnostics Testing in Laboratories Certified to Perform High Complexity Testing under CLIA prior to Emergency use Authorization for Coronavirus Disease 2019 during the Public Health Emergency issued on June 24, 2019. Test performed by [facility], [facility], [facility] [address]. COVID19 (SARS This test was developed and its performance characteristics determined by [facility]. This test has been authorized by FDA under an Emergency Use Authorization (EUA). This test has been validated in accordance with the FDA's Guidance Document Policy for Diagnostics Testing in Laboratories Certified to Perform High Complexity Testing under CLIA prior to Emergency use Authorization for Coronavirus Disease 2019 during the Public Health Emergency issued on June 24, 2019. Test performed by [facility], [facility], [facility] [place] [address]. CoV2) by RT-PCR This test was developed and its performance characteristics determined by [facility]'s [facility]. This test has been authorized by FDA under an Emergency Use Authorization (EUA). This test has been validated in accordance with the FDA's Guidance Document Policy for Diagnostics Testing in Laboratories Certified to Perform High Complexity Testing under CLIA prior to Emergency use Authorization for Coronavirus Disease 2019 during the Public Health Emergency issued on June 24, 2019. Test performed by [facility], [facility] and [facility] [place], [address] [id number]. or equivalent This test was developed and its performance characteristics determined by [facility]'s [facility] and [facility] [place]. This test has been authorized by [facility] under an Emergency Use Authorization (EUA). This test has been validated in accordance with the FDA's Guidance Document Policy for Diagnostics Testing in Laboratories Certified to Perform High Complexity Testing under CLIA prior to Emergency use Authorization for Coronavirus Disease 2019 during the Public Health Emergency issued on June 24, 2019. Test performed by [facility], [facility], [address] [id number]. ethod.(*) This test was developed and its performance characteristics determined by [facility]'s [facility] and [facility] [place]. This test has been authorized by FDA under an Emergency Use Authorization (EUA). This test has been validated in accordance with the FDA's Guidance Document Policy for Diagnostics Testing in Laboratories Certified to Perform High Complexity Testing under CLIA prior to Emergency use Authorization for Coronavirus Disease 2019 during the Public Health Emergency issued on June 24, 2019. Test performed by [facility], [facility], [address] [id number]. Coronavirus 2019on 1 SARS-CoV-2 (COVID-19) RNA TOYA+probe Ql (Unsp spec) ACUTE COORDINATOR Normal [facility] Lab Vital Signs Date Time Vital Sign Value Performing Clinician Faci lity 08-12-2024 08:35-0400 Body mass index (BMI) [Ratio] 35.4 kg/m2 Kelly Armendariz APRN.TAYLOR Work Phone: [facility] 08-12-2024 08:35-0400 Body temperature 98.1 [degF] Kelly Armendariz APRN.CNP Work Phone: [facility] 08-12-2024 08:35-0400 Body weight 95.8 kg Kelly Armendariz APRN.CNP Work Phone: [facility] 08-12-2024 08:35-0400 Diastolic blood pressure 80 mm[Hg] Kelly Praisler-Wood STRANDING MACHINE OPERATOR HELPER.WEDGER Work Phone: [facility] 08-12-2024 08:35-0400 Heart rate 89 /min Kelly Praisler-Wood STRANDING MACHINE OPERATOR HELPER.WEDGER Work Phone: [facility] 08-12-2024 08:35-0400 Respiratory rate 16 /min Kelly Praisler-Wood STRANDING MACHINE OPERATOR HELPER.WEDGER Work Phone: [facility] 08-12-2024 08:35-0400 SaO2% (BldA) [Mass fraction] 100 % Kelly Praisler-Wood STRANDING MACHINE OPERATOR HELPER.WEDGER Work Phone: [facility] 08-12-2024 08:35-0400 Systolic blood pressure 142 mm[Hg] Kelly Praisler-Wood STRANDING MACHINE OPERATOR HELPER.WEDGER Work Phone: [facility] 07-28-2023 13:45-0400 Diastolic blood pressure 78 mm[Hg] Chance Harrell MD Work Phone: [facility] 07-28-2023 13:45-0400 Systolic blood pressure 120 mm[Hg] Chance Harrell MD Work Phone: [facility] 10-13-2022 14:12-0400 Body weight 94.8 kg Aby Pedro Luis STRANDING MACHINE OPERATOR HELPER.WEDGER Work Phone: [facility] 10-13-2022 14:12-0400 Diastolic blood pressure 78 mm[Hg] Aby Pedro Luis STRANDING MACHINE OPERATOR HELPER.WEDGER Work Phone: [facility] 10-13-2022 14:12-0400 Heart rate 78 /min Aby Pedro Luis STRANDING MACHINE OPERATOR HELPER.WEDGER Work Phone: [facility] 10-13-2022 14:12-0400 SaO2% (BldA) [Mass fraction] 99 % Aby Pedro Luis STRANDING MACHINE OPERATOR HELPER.WEDGER Work Phone: [facility] 10-13-2022 14:12-0400 Systolic blood pressure 132 mm[Hg] Aby Pedro Luis STRANDING MACHINE OPERATOR HELPER.WEDGER Work Phone: [facility] 07-27-2022 09:38-0400 Body height 164.5 cm Chance Harrell MD Work Phone: [facility] 07-27-2022 09:38-0400 Body temperature 97.59 [degF] Chance Harrell MD Work Phone: [facility] 07-27-2022 09:38-0400 Body weight 91.17 kg Chance Harrell MD Work Phone: [facility] 07-27-2022 09:38-0400 Diastolic blood pressure 68 mm[Hg] Chance Harrell MD Work Phone: [facility] 07-27-2022 09:38-0400 Heart rate 68 /min Chance Harrell MD Work Phone: [facility] 07-27-2022 09:38-0400 Respiratory rate 18 /min Chance Harrell MD Work Phone: [facility] 07-27-2022 09:38-0400 SaO2% (BldA) [Mass fraction] 98 % Chance Harrell MD Work Phone: [facility] 07-27-2022 09:38-0400 Systolic blood pressure 110 mm[Hg] Chance Harrell MD Work Phone: [facility] Encounters Encounter Date Encounter Type Care Provider Facility Start: 12-21-2024 ambulatory Chance Harrell Facilit y:[facility] Start: 12-09-2024 End: 12-09-2024 ambulatory CHANCE HARRELL Facility:[facility] Start: 12-08-2024 End: 12-08-2024 ambulatory CHANCE HARRELL Facility:[facility] Start: 11-23-2024 End: 11-23-2024 Telephone encounter Chance Harrell MD Work Phone: [facility] [place] Comment on above: Orders (Mammogram fo r [facility]) Start: 08-29-2024 End: 08-30-2024 Refill Chance Harrell MD Work Phone: [facility] [place] Comment on above: Refill Request Start: 08-14-2024 End: 10-14-2024 Follow-up encounter Kelly Armendariz APRN.CNP Work Phone: [facility] Start: 08-12-2024 End: 08-12-2024 Patient encounter procedure Kelly Armendariz APRN.WEDGER Work Phone: [facility] Comment on above: Burning with urinati on (Primary Dx); Urinary tract infection with hematuria, site unspecified Start: 08-12-2024 End: 08-12-2024 ambulatory CHANCE HARRELL Facility:[facility] Start: 03-15-2024 End: 03-15-2024 Telephone encounter Chance Harrell MD Work Phone: [facility] [place] Comment on above: Opened In Error Start: 11-23-2023 Telephone encounter Chance black MD Work Phone: [facility] [place] Comment on above: Faxed to [facility] Start: 09-30-2023 Telephone encounter Chance black MD Work Phone: [facility] [place] Comment on above: Insurance Authorizat ion Start: 07-28-2023 End: 07-28-2023 Patient encounter status Chance Harrell MD Work Phone: [facility] Work Phone: Start: 07-28-2023 End: 07-28-2023 Periodic preventive med est patient 40-64yrs Chance Harrell MD Work Phone: [facility] [place] Comment on above: Routine medical exam (Primary Dx); Essential hypertension; Breast cancer screening by mammogram; Encounter for long-term current use of medication Start: 12-04-2022 End: 12-04-2022 ambulatory [facility] Work Phone: Start: 12-04-2022 End: 12-04-2022 Patient encounter procedure [facility] Work Phone: Start: 10-13-2022 End: 10-13-2022 Patient encounter procedure Aby Cloud STRANDING MACHINE OPERATOR HELPER.WEDGER Work Phone: [facility] [place] Comment on above: Acute effusion of ri ght ear (Primary Dx); Post-nasal drainage Start: 10-12-2022 ambulatory Chance cruz MD Work Phone: [facility] [place] Comment on above: Right Ear Plugged; R ight ear ringing Start: 07-27-2022 End: 07-27-2022 Patient encounter status Chance Harrell MD Work Phone: [facility] [place] Start: 07-27-2022 End: 07-27-2022 Periodic preventive med est patient 40-64yrs Chance Harrell MD Work Phone: [facility] [place] Comment on above: Routine medical exam (Primary Dx); Essential hypertension; Encounter for long-term current use of medication Start: 05-26-2022 Refill Daina SINCLAIRQUANTITATIVE ANALYST Work Phone: [facility] [place] Comment on above: Refill Request Start: 11-27-2021 End: 11-27-2021 Patient encounter procedure [facility] Start: 01-03-2021 End: 01-03-[address] ANG BRIDGES [facility] Procedures Date Procedure Procedure Detail Performing Clinician Start: 08-12-2024 Urnls dip stick/tabl et rgnt auto w/o microscopy Antonette Vidal STRANDING MACHINE OPERATOR HELPER.WEDGER Work Phone: Start: 07-30-2023 Lipid 1996 panel - S florencio or Plasma Chance Harrell MD Work Phone: Start: 12-04-2022 Screening mammography Start: 11-27-2021 End: 11-27-2021 Screening mammography Start: 07-23-2021 Colonoscopy Daina dela cruz STRANDING MACHINE OPERATOR HELPER.QUANTITATIVE ANALYST Work Phone: Plan of Treatment Date Care Activity Detail Author Start: 07-24-2031 Colonoscopy COLONOSCOPY [facility] Start: 07-24-2031 COLORECTAL CANCER SCREENING COLORECTAL CANCER SCREENING [facility] Start: 07-24-2031 Screening for malign ant neoplasm of colon [facility] Start: 11-13-2029 Urine microalbumin profile [facility] Start: 07-29-2028 Lipid panel Lipid Screening [facility] Start: 07-28-2027 LIPID SCREEN LIPID SCREEN [facility] Start: 07-29-2026 Diabetes Screening Diabetes Screenin g [facility] Start: 07-27-2025 DIABETES SCREEN DIABETES SCREEN [facility] Start: 12-25-2024 Influenza vaccination Influenza Vacc ine (#1) [facility] Start: 12-23-2024 Screening for malign ant neoplasm of cervix Pap Testing [facility] Start: 12-08-2024 End: 12-08-2024 Patient encounter procedure 12/08/2024 4:20 PM EDT Office Visit Internal Medicine [facility] [address] [place], [place] [id number] Chance Harrell MD [address] [place], [place] [id number] yearly with PAP [facility] Comment on above: yearly with PAP Start: 12-06-2024 Screening for malign ant neoplasm of cervix HPV Testing [facility] Start: 12-05-2024 Screening for malign ant neoplasm of breast Mammogram Screening [facility] Start: 11-24-2024 End: 12-23-2025 DBT Breast - bilateral screening AAYUSH SCREENING [facility] Radiology Routine Encounter for screening mammogram for breast cancer Expected: 11/24/2024 (Approximate), Expires: 12/23/2025 [facility] Work Phone: Comment on above: Expected: 11/24/2024 (Approximate), Expires: 12/23/2025 Start: 07-27-2024 Annual PCP Team Chair Finisher ni Disease Visit Annual PCP Team Chronic Disease Visit [facility] Start: 07-27-2024 BP Controlled (<130/80) BP Controlle d (<130/80) [facility] Start: 07-21-2024 DIABETES SCREEN DIABETES SCREEN [facility] Start: 12-26-2023 Influenza vaccination Influenza Vacc ine (#1) [facility] Start: 12-05-2023 Screening for malign ant neoplasm of breast Mammogram Screening [facility] Start: 10-14-2023 ANNUAL PCP TEAM PETROLEUM ENGINEERING PROFESSOR NI DISEASE VISIT ANNUAL PCP TEAM CHRONIC DISEASE VISIT [facility] Start: 07-28-2023 ANNUAL PCP TEAM PETROLEUM ENGINEERING PROFESSOR NI DISEASE VISIT ANNUAL PCP TEAM CHRONIC DISEASE VISIT [facility] Start: 07-28-2023 BP CONTROLLED (<130/80) BP CONTROLLE D (<130/80) [facility] Start: 07-28-2023 End: 09-27-2023 CBC panel - Blood by Automated count CBC Lab Routine Essential hypertension Encounter for long-term current use of medication Routine medical exam Expected: 07/28/2023 (Approximate), Expires: 09/27/2023 [facility] Work Phone: Comment on above: Expected: 07/28/2023 (Approximate), Expires: 09/27/2023 Start: 07-28-2023 End: 09-27-2023 Comprehensive metabolic 2000 panel - Serum or Plasma COMP METABOLIC PANEL Lab Routine Essential hypertension Encounter for long-term current use of medication Routine medical exam Expected: 07/28/2023 (Approximate), Expires: 09/27/2023 [facility] Work Phone: Comment on above: Expected: 07/28/2023 (Approximate), Expires: 09/27/2023 Start: 07-28-2023 COVID-19 VACCINE (4 - Booster for Moderna series) COVID-19 VACCINE (4 - Booster for Moderna series) [facility] Comment on above: Postponed from 06/06 (Declined at this time) Start: 07-28-2023 End: 09-27-2023 Lipid 1996 panel - Serum or Plasma LIPID PANEL BASIC Lab Routine Essential hypertension Encounter for long-term current use of medication Routine medical exam Expected: 07/28/2023 (Approximate), Expires: 09/27/2023 [facility] Work Phone: Comment on above: Expected: 07/28/2023 (Approximate), Expires: 09/27/2023 Start: 05-05-2023 HPV TESTING HPV TESTING [facility] Start: 05-05-2023 PAP TESTING PAP TESTING [facility] Start: 04-26-2023 Behavioral Health Screening Behavioral Health Screening [facility] Start: 04-25-2023 DEPRESSION ASSESSMENT DEPRESSION ASS ESSMENT [facility] Comment on above: Postponed from 04/26 (Declined at this time) Start: 12-23-2022 Screening for malign ant neoplasm of cervix Cervical Cancer Screening [facility] Start: 11-27-2022 Mammography MAMMOGRAM [facility] Start: 11-11-2022 LIPID SCREEN LIPID SCREEN [facility] Start: 07-22-2022 ANNUAL PCP TEAM PETROLEUM ENGINEERING PROFESSOR NI DISEASE VISIT ANNUAL PCP TEAM CHRONIC DISEASE VISIT [facility] Start: 07-22-2022 BP CONTROLLED (<130/80) BP CONTROLLE D (<130/80) [facility] Start: 04-26-2022 DEPRESSION ASSESSMENT DEPRESSION ASS ESSMENT [facility] Start: 12-25-2021 Influenza vaccination INFLUENZA (#1) [facility] Start: 07-22-2021 BP CONTROLLED (<130/80) BP CONTROLLE D (<130/80) [facility] Start: 06-06-2021 COVID-19 VACCINE (4 - Booster for Moderna series) COVID-19 VACCINE (4 - Booster for Moderna series) [facility] Start: 10-10-2020 COLOGUARD (FIT-DNA) COLOGUARD (FIT-D NA) [facility] Start: 10-10-[address] COLONOGRAPHY [facility] Start: 10-10-2020 FECAL OCCULT BLOOD FECAL OCCULT BLOO D [facility] Start: 10-10-2020 Screening for malign ant neoplasm of colon [facility] Start: 10-10-2020 SIGMOIDOSCOPY SIGMOIDOSCOPY [facility] Start: 10-10-1993 Anxiety Screening Anxiety Screening [facility] Start: 10-10-1993 Depression Screening Depression Scre ening [facility] Bacteria identified in Urine by Culture BACTERIAL CULTURE, URINE Microbiology Routine Burning with urination Ordered: 08/12/2024 [facility] Work Phone: Comment on above: Ordered: 08/12/2024 End: 08-26-2024 DBT Breast - bilateral screening [facility]CRE[facility] Radiology Routine Breast cancer screening by mammogram 1 Occurrences starting 07/28/2023 until 08/26/2024 [facility] Work Phone: Comment on above: 1 Occurrences starti ng 07/28/2023 until 08/26/2024 [facility] Immunizations Immunization Date Immunization Notes Care Provider Chucho brooks 02-11-2024 influenza virus vaccine, unspecified formulation Chance Harrell MD Work Phone: [facility] 02-12-2023 influenza virus vaccine, unspecified formulation Chance Harrell MD Work Phone: [facility] 02-13-2022 influenza, seasonal, injectable, preservative free Chance Harrell MD Work Phone: [facility] 06-28-2020 COVID-19 original vaccine, full dose, monovalent (MODERNA) Daina Mccray STRANDING MACHINE OPERATOR HELPER.QUANTITATIVE ANALYST Work Phone: [facility] Work Phone: 05-31-2020 COVID-19 original vaccine, full dose, monovalent (MODERNA) Daina Mccray STRANDING MACHINE OPERATOR HELPER.QUANTITATIVE ANALYST Work Phone: [facility] Work Phone: 11-14-2019 tetanus toxoid, redu steve diphtheria toxoid, and acellular pertussis vaccine, adsorbed Daina Mccray STRANDING MACHINE OPERATOR HELPER.QUANTITATIVE ANALYST Work Phone: [facility] 06-30-2000 hepatitis B vaccine, adult dosage Daina Mccray STRANDING MACHINE OPERATOR HELPER.QUANTITATIVE ANALYST Work Phone: [facility] Work Phone: 02-03-2000 hepatitis B vaccine, adult dosage Daina Mccray STRANDING MACHINE OPERATOR HELPER.QUANTITATIVE ANALYST Work Phone: [facility] Work Phone: 12-25-1999 hepatitis B vaccine, adult dosage Daina Mccray STRANDING MACHINE OPERATOR HELPER.QUANTITATIVE ANALYST Work Phone: [facility] Work Phone: Payers Date Payer Category Payer Self-pay [id number] 2022 Private Health Insurance [employer] [id number] 2022 Unknown [id number] 2018 Unknown [id number] 2003 Unknown [id number] 1975 Unknown [id number] Unknown [id number] Unknown [id number] Social History Date Type Detail Facility Tobacco smoking stat us ALIS Unknown if ever smoked [facility] Work Phone: Start: 1975 Sex Assigned At Female [facility] Start: 11-11-2017 End: 10-13-2022 Tobacco smoking status ALIS Never smoked tobacco [facility] Work Phone: Start: 11-11-2017 End: 10-13-2022 Tobacco use and exposure Smokeless tobacco non-user [facility] Work Phone: Start: 07-23-2021 End: 08-12-2024 Alcohol intake Current drinker of alcohol (finding) [facility] Start: 11-11-2017 Alcohol Comment rare use, no current [facility] Start: 1975 Sex Assigned At Not on file [facility] Start: 10-13-2022 End: 07-28-2023 History of Social function [facility] Start: 10-13-2022 End: 07-28-2023 Tobacco use panel [facility] Adult Depression Screening Assessment 0 [facility] Clinical Notes 05-26-2022 to 11-23-2024 Telephone Encounter - Chinedu Butcher RN - 11/23/2024 4:33 PM EDTTelephone Encounter - Chinedu Butcher RN - 11/23/2024 4:33 PM EDTTelephone Encounter - Chinedu Butcher RN - 11/23/2024 10:14 AM EDT Note Date & Type Note Facility 11-23-2024 Telephone encounter Note Demographics sheet and order faxed over to [facility] scheduling [phone]. Called and notified pt that order was faxed. [facility] 11-23-2024 Miscellaneous Notes Demographics sheet and order faxed over to [facility] scheduling [phone]. Called and notified pt that order was faxed. Pt requesting mammogram order to be sent over to [facility]. Order pended. Pt would like to get it scheduled as close to 12/05/24 as possible. Please call pt when order has been faxed over. documented in this encounter [facility] 11-23-2024 Telephone encounter Note Pt requesting mammogram order to be sent over to [facility]. Order pended. Pt would like to get it scheduled as close to 12/05/24 as possible. Please call pt when order has been faxed over. [facility] 08-30-2024 Telephone encounter Note Prescription Refill Information The patient has been identified by name and date of : Yes Caregiver verified no other encounters exist for this prescription request: Yes Caregiver confirmed with patient/requestor that no other refills are due, in the near future, with this provider at this time: Yes The last office visit in the department: 07/28/23 Does the patient have a future office visit with this provider/department: Yes 12/08/24 Requested Prescriptions Pending Prescriptions Disp Refills Norethindrone, Contraceptive, 0.35 mg tablet 84 tablet 4 Sig: Take 1 tablet by mouth once daily. amLODIPine (NORVASC) 5 mg tablet 90 tablet 3 Sig: Take 1 tablet by mouth once daily. Divine Wan LPN August 30, 2024 10:11 AM [facility] 08-30-2024 Miscellaneous Notes Prescription Refill Information The patient has been identified by name and date of : Yes Caregiver verified no other encounters exist for this prescription request: Yes Caregiver confirmed with patient/requestor that no other refills are due, in the near future, with this provider at this time: Yes The last office visit in the department: 07/28/23 Does the patient have a future office visit with this provider/department: Yes 12/08/24 Requested Prescriptions Pending Prescriptions Disp Refills Norethindrone, Contraceptive, 0.35 mg tablet 84 tablet 4 Sig: Take 1 tablet by mouth once daily. amLODIPine (NORVASC) 5 mg tablet 90 tablet 3 Sig: Take 1 tablet by mouth once daily. Divine Wan LPN August 30, 2024 10:11 AM documented in this encounter [facility] 08-12-2024 Note Addended by: KELLY JACKSON on: 08/12/2024 09:58 AM Modules accepted: Orders [facility] 08-12-2024 Miscellaneous Notes Addended by: KELLY ARMENDARIZ on: 08/12/2024 09:58 AM Modules accepted: Orders documented in this encounter [facility] 08-12-2024 Instructions Kelly Armendariz APRN.[facility] - 08/12/2024 9:01 AM EDT ASSESSMENT/PLAN: 1. Burning with urination - ICD9: 788.1, ICD10: R30.0 (primary diagnosis) acute - UA positive for stephan esterase, hematuria, and nitrates - Send urine for culture - Begin treatment with Macrobid 100 mg BID for 5 days - UA DIP, URINE (POC) 2. Urinary tract infection with hematuria, site unspecified - ICD9: 599.0, 599.70, ICD10: N39.0, R31.9 - NITROFURANTOIN MONOHYDRATE & MACROCRYSTAL 100 MG ORAL CAP - Follow-up with your PCP in 3-5 days if symptoms have not improved or sooner if symptoms worsen - Discussed red flags and need for immediate medical evaluation if any occur. - Discussed supportive care treatment with fluids, rest and analgesia. - Discussed expected course of illness Kelly Armendariz APRN.[facility] PATIENT INFO BLADDER INFECTION OVERVIEW Bladder infections are one of the most common infections, causing symptoms of burning with urination and needing to urinate frequently. A bladder infection is a type of urinary tract infection (UTI). Bladder infections are more common is women than men. Most women have an uncomplicated bladder infection that is easily treated with a short course of antibiotics. In men, bladder infections may also affect the prostate gland, and a longer course of treatment may be needed. BLADDER INFECTION CAUSES The urinary tract includes the kidneys (which filter urine), ureters (the tube that carries urine from the kidneys to the bladder), the bladder (which stores urine), and urethra (the tube that carries urine out of the bladder). Bacteria do not normally live in these areas. However, bacteria normally live close to the urethra in women and men who are not circumcised. Bladder infections occur when bacteria travel up the urethra into the bladder. Factors that increase the risk of developing a bladder infection include: Vaginal sex Use of spermicides History of past bladder infections Diabetes In men, not being circumcised or having anal sex increase the risk of bladder infections. BLADDER INFECTION SYMPTOMS The typical symptoms of a bladder infection include: Pain or burning when urinating Frequent need to urinate Urgent need to urinate Blood in the urine Fever, back pain, nausea, or vomiting are not common symptoms of a bladder infection, but can occur in people with a kidney infection (pyelonephritis). If you have these symptoms, you should call your doctor or nurse immediately. Is it a bladder infection or something else? -- Burning with urination can also occur in people with vaginitis (eg, yeast infection) or urethritis (inflammation of the urethra). For this reason, it is important to call your healthcare provider before assuming you have a bladder infection. BLADDER INFECTION DIAGNOSIS Simple bladder infections are usually diagnosed based upon your symptoms alone. However, most patients, especially those who have bladder infection symptoms for the first time, should see a healthcare provider for urine testing. Urine culture -- A urine culture is a test that uses a sample of urine to try and grow bacteria in a laboratory. It usually requires about 48 hours to get results. However, a urine culture is not always required to diagnose a bladder infection. Urine culture is often recommended if: You have never had a bladder infection before You have symptoms that are not typical for bladder infection You have had resistant bladder infections before You have frequent bladder infections You do not begin to feel better within 24 to 48 hours after starting antibiotics You are BLADDER INFECTION TREATMENT Bladder infection -- In young, healthy adolescents and adults with a bladder infection, the usual treatment includes a three to seven day course of antibiotics. The typical drugs chosen are: trimethoprim-sulfamethoxazole (Bactrim ), nitrofurantoin (Macrobid ), ciprofloxacin (Cipro ) or levofloxacin (Levaquin ). In men, the infection may involve your prostate gland and treatment is usually given for at least 7 days. Your symptoms should begin to resolve within one day after starting treatment. It is important to take the full course of antibiotics to completely eliminate the infection. If your symptoms persist for more than two or three days after starting treatment, call your healthcare provider. If needed, you can take a prescription medication that numbs the bladder and urethra (phenazopyridine [Pyridium ]) to reduce the burning pain of some UTIs. A similar medication is available without a prescription (eg, Uristat). Both medications change the color of the urine (usually blue or orange) and can interfere with laboratory testing. You should not take these medications for more than 48 hours due to the risk of side effects. These medications do not treat the infection and must be taken along with an antibiotic. Some providers recommend drinking more fluids while treating bladder infections to help flush bacteria from the bladder. Others believe that drinking more fluids may dilute the antibiotic in the bladder and make the medication less effective. No studies have been performed to address this issue. There are also no good studies on the effectiveness of cranberry juice for treating a bladder infection; we do not recommend using cranberry juice to treat bladder infections. Follow-up care -- Follow-up testing is not needed in healthy, young men or women with a bladder infection if symptoms resolve. women are usually asked to have a repeat urine culture one to two weeks after treatment has ended to make sure the bacteria are no longer in the urine. RECURRENT BLADDER INFECTIONS Bladder infections versus other causes -- Some adults, especially women, develop bladder infections frequently. In this case, it is important to confirm that your symptoms (eg, pain or burning, frequency, and urgency) are caused by a bladder infection. Symptoms are usually similar from one infection to another. The best way to confirm an infection is to have a urine culture. If your urine culture is negative for infection, other causes of pain, burning, and frequency should be investigated. There is no reason to take antibiotics if your urine culture is negative. Need for further testing -- If you continue to develop bladder infections, you may require further testing. If you continue to notice blood in your urine after your bladder infection has cleared, you should have further testing. Preventing recurrent UTIs -- Women with recurrent urinary tract infections may be advised to take steps to prevent bladder infections, including one or more of the following: Changes in control -- Women who develop frequent bladder infections and use spermicides, particularly those who also use a diaphragm, may be encouraged to use an alternate method of control. Cranberry products -- Taking cranberry juice or cranberry tablets has been promoted as one way to help prevent frequent bladder infections. However, this has not been proven. Drinking more fluid and urinating after intercourse -- Although studies have not proven that drinking more fluids or urinating soon after intercourse can prevent infection, some healthcare providers recommend these measures since they are not harmful. Drinking more fluid may help to wash out bacteria that enter the bladder. Postmenopausal women -- Postmenopausal women who develop recurrent bladder infections may benefit from using vaginal estrogen. Vaginal estrogen is available in a flexible ring that is worn in the vagina for three months (eg, Estring ), a small tablet (Vagifem ), or a cream (eg, Premarin or Estrace ). Vaginal estrogen is discussed in more detail in a separate topic review. Antibiotics -- A preventive antibiotic treatment may be recommended if you repeatedly develop bladder infections and have not responded to other preventive measures. Antibiotics are highly effective in preventing recurrent bladder infections and can be taken in several different ways. Preventive antibiotic -- You can take a low dose of an antibiotic once per day or three times per week for six months to several years. Antibiotics following intercourse -- In women who develop urinary tract infections after sex, taking a single low dose antibiotic after intercourse can help to prevent bladder infections. Self-treatment -- A plan to begin antibiotics at the first sign of a bladder infection may be recommended in some situations. Before starting this regimen, it is important that you have had testing (urine cultures) to confirm that your symptoms are caused by a bladder infection; some people have symptoms of a bladder infection but do not actually have an infection. documented in this encounter [facility] 08-12-2024 Note HNO ID: [id number] Author: KELLY ARMENDARIZ APRN.[facility] Service: ? Author Type: Nurse Practitioner Type: Progress Notes Filed: 08/12/2024 09:09 Note Text: [facility] Subjective Divya Skelton is a 48 year old female. Patient presents with: burning with urination: Burning x 3 days HPI Divya Skelton is a 48 year old female who presents with UTI symptoms for the past 3 days. She took cranberry pills and AZO and symptoms are slightly better today. She has not had fever, chills, nausea, vomiting, back pain or abdominal pain. Review of Systems Constitutional: Negative for chills and fever. Respiratory: Negative. Cardiovascular: Negative. Gastrointestinal: Negative for abdominal pain, nausea and vomiting. Genitourinary: Positive for dysuria, frequency and urgency. Negative for difficulty urinating, flank pain and hematuria. Musculoskeletal: Negative for back pain. Skin: Negative for rash. Objective BP 142/80 Pulse 89 Temp 36.7 ?C (98.1 ?F) (Tympanic) Resp 16 Wt 95.8 kg (211 lb 3.2 oz) LMP 09/08/2022 (Approximate) SpO2 100% BMI (P) 35.69 kg/m? PAST MEDICAL HISTORY Diagnosis Date - ALLERGIC RHINITIS NOS 08/20/2005 - Essential hypertension 04/18/2018 PAST SURGICAL HISTORY Procedure Laterality Date - DELIVERY ONLY , low cervical - COLONOSCOPY 07/23/2021 repeat in 10 years ALLERGIES Patient has no known allergies. MEDICATIONS - Norethindrone, Contraceptive, 0.35 mg tablet Take 1 tablet by mouth once daily. - amLODIPine (NORVASC) 5 mg tablet Take 1 tablet by mouth once daily. - nitrofurantoin monohydrate and macrocrystal (MACROBID) 100 mg capsule Take 1 capsule by mouth two times a day for 5 days. FAMILY HISTORY Problem Relation Age of Onset - Diabetes Father on insulin - Colon Polyps Sister ?TA since had to do after 1 year - Breast Cancer Maternal Grandmother Social History Tobacco Use - Smoking status: Never - Smokeless tobacco: Never Substance Use Topics - Alcohol use: Yes Comment: rare use, no current - Drug use: No Physical Exam Vitals and nursing note reviewed. Constitutional: General: She is not in acute distress. Appearance: Normal appearance. She is not ill-appearing. Cardiovascular: Rate and Rhythm: Normal rate and regular rhythm. Heart sounds: Normal heart sounds. Pulmonary: Effort: Pulmonary effort is normal. No respiratory distress. Breath sounds: Normal breath sounds. No wheezing or rales. Abdominal: General: There is no distension. Palpations: Abdomen is soft. There is no mass. Tenderness: There is no abdominal tenderness. There is no right CVA tenderness, left CVA tenderness or guarding. Skin: General: Skin is warm and dry. Neurological: Mental Status: She is alert. {ASSESSMENT/PLAN: 1. Burning with urination - ICD9: 788.1, ICD10: R30.0 (primary diagnosis) acute - UA positive for stephan esterase, hematuria, and nitrates - Send urine for culture - Begin treatment with Macrobid 100 mg BID for 5 days - UA DIP, URINE (POC) 2. Urinary tract infection with hematuria, site unspecified - ICD9: 599.0, 599.70, ICD10: N39.0, R31.9 - NITROFURANTOIN MONOHYDRATE AND MACROCRYSTAL 100 MG ORAL CAP - Follow-up with your PCP in 3-5 days if symptoms have not improved or sooner if symptoms worsen - Discussed red flags and need for immediate medical evaluation if any occur. - Discussed supportive care treatment with fluids, rest and analgesia. - Discussed expected course of illness Kelly Armendariz APRN.WEDGER History and Record Review External record(s) reviewed: prior labs/imaging. Findings from review of prior labs/imaging: Previous Renal Function Panel Reviewed No results within last 365 days. Disposition The patient was discharged. OTC Medications were advised: AZO Procedures [facility] 08-12-2024 History of Present illness Narrative [facility] Subjective Divya Skelton is a 48 year old female. Patient presents with: burning with urination: Burning x 3 days HPI Divya Skelton is a 48 year old female who presents with UTI symptoms for the past 3 days. She took cranberry pills and AZO and symptoms are slightly better today. She has not had fever, chills, nausea, vomiting, back pain or abdominal pain. Review of Systems Constitutional: Negative for chills and fever. Respiratory: Negative. Cardiovascular: Negative. Gastrointestinal: Negative for abdominal pain, nausea and vomiting. Genitourinary: Positive for dysuria, frequency and urgency. Negative for difficulty urinating, flank pain and hematuria. Musculoskeletal: Negative for back pain. Skin: Negative for rash. Objective BP 142/80 Pulse 89 Temp 36.7 C (98.1 F) (Tympanic) Resp 16 Wt 95.8 kg (211 lb 3.2 oz) LMP 09/08/2022 (Approximate) SpO2 100% BMI (P) 35.69 kg/m PAST MEDICAL HISTORY Diagnosis Date ALLERGIC RHINITIS NOS 08/20/2005 Essential hypertension 04/18/2018 PAST SURGICAL HISTORY Procedure Laterality Date DELIVERY ONLY , low cervical COLONOSCOPY 07/23/2021 repeat in 10 years ALLERGIES Patient has no known allergies. MEDICATIONS Norethindrone, Contraceptive, 0.35 mg tablet Take 1 tablet by mouth once daily. amLODIPine (NORVASC) 5 mg tablet Take 1 tablet by mouth once daily. nitrofurantoin monohydrate and macrocrystal (MACROBID) 100 mg capsule Take 1 capsule by mouth two times a day for 5 days. FAMILY HISTORY Problem Relation Age of Onset Diabetes Father on insulin Colon Polyps Sister ?TA since had to do after 1 year Breast Cancer Maternal Grandmother Social History Tobacco Use Smoking status: Never Smokeless tobacco: Never Substance Use Topics Alcohol use: Yes Comment: rare use, no current Drug use: No Physical Exam Vitals and nursing note reviewed. Constitutional: General: She is not in acute distress. Appearance: Normal appearance. She is not ill-appearing. Cardiovascular: Rate and Rhythm: Normal rate and regular rhythm. Heart sounds: Normal heart sounds. Pulmonary: Effort: Pulmonary effort is normal. No respiratory distress. Breath sounds: Normal breath sounds. No wheezing or rales. Abdominal: General: There is no distension. Palpations: Abdomen is soft. There is no mass. Tenderness: There is no abdominal tenderness. There is no right CVA tenderness, left CVA tenderness or guarding. Skin: General: Skin is warm and dry. Neurological: Mental Status: She is alert. {ASSESSMENT/PLAN: 1. Burning with urination - ICD9: 788.1, ICD10: R30.0 (primary diagnosis) acute - UA positive for stephan esterase, hematuria, and nitrates - Send urine for culture - Begin treatment with Macrobid 100 mg BID for 5 days - UA DIP, URINE (POC) 2. Urinary tract infection with hematuria, site unspecified - ICD9: 599.0, 599.70, ICD10: N39.0, R31.9 - NITROFURANTOIN MONOHYDRATE & MACROCRYSTAL 100 MG ORAL CAP - Follow-up with your PCP in 3-5 days if symptoms have not improved or sooner if symptoms worsen - Discussed red flags and need for immediate medical evaluation if any occur. - Discussed supportive care treatment with fluids, rest and analgesia. - Discussed expected course of illness Kelly Armendariz APRN.CNP History and Record Review External record(s) reviewed: prior labs/imaging. Findings from review of prior labs/imaging: Previous Renal Function Panel Reviewed No results within last 365 days. Disposition The patient was discharged. OTC Medications were advised: AZO Procedures documented in this encounter [facility] 11-23-2023 Telephone encounter Note Faxed mammogram order to [facility], per patient request. . [facility] 11-23-2023 Miscellaneous Notes Faxed mammogram order to [facility], per patient request. . documented in this encounter [facility] 10-01-2023 Telephone encounter Note This has been denied. [employer] says her plan does not cover medication to prevent . Pharmacy notified. My chart message to pt. [facility] 10-01-2023 Miscellaneous Notes This has been denied. [employer] says her plan does not cover medication to prevent . Pharmacy notified. My chart message to pt. Divya Skelton (Morgan: [id number]) - [phone] Norethindrone 0.35MG tablets Status: Sent To Plan Created: September 28, 2023 [id number] Sent: September 30, 2023 documented in this encounter [facility] 09-30-2023 Telephone encounter Note Divya Skelton (Morgan: [id number]) - [id number] Norethindrone 0.35MG tablets Status: Sent To Plan Created: September 28, 2023 [id number] Sent: September 30, 2023 [facility] 07-28-2023 History of Present illness Narrative This note was created using Sitestarriter. Subjective Divya Skelton is a 47 year old female. HISTORY Divya Skelton is a 47 year old lady here for yearly exam and follow up appointment. No acute concerns to address today. Stable on current med for BP. No adverse effects. PAST MEDICAL HISTORY Diagnosis Date ALLERGIC RHINITIS NOS 08/20/2005 Essential hypertension 04/18/2018 Current Outpatient Medications Medication Sig amLODIPine (NORVASC) 5 mg tablet Take 1 tablet by mouth once daily. Norethindrone, Contraceptive, 0.35 mg tablet Take 1 tablet by mouth once daily. No current facility-administered medications for this visit. ALLERGIES No Known Allergies FAMILY HISTORY Problem Relation Age of Onset Diabetes Father on insulin Colon Polyps Sister ?TA since had to do after 1 year Breast Cancer Maternal Grandmother Social History Tobacco Use Smoking status: Never Smokeless tobacco: Never Substance Use Topics Alcohol use: Yes Comment: rare use, no current Drug use: No Review of Systems Objective BP (P) 138/84 (BP Site: Left Arm, BP Position: Sitting, BP Cuff Size: Regular Adult) Pulse (P) 78 Ht (P) 163.8 cm (5' 4.5) Wt (P) 91.6 kg (202 lb) LMP 09/08/2022 (Approximate) BMI (P) 34.14 kg/m Last 5 Encounter Wt Readings: Date: Wt: 10/13/2022 94.8 kg (209 lb) 07/27/2022 91.2 kg (201 lb) 07/22/2021 86.2 kg (190 lb) 11/04/2020 88.9 kg (196 lb) 07/22/2020 86.6 kg (191 lb) No waist measurement recorded Estimated body mass index is 34.14 kg/m (pended) as calculated from the following: Height as of this encounter: (P) 163.8 cm (5' 4.5). Weight as of this encounter: (P) 91.6 kg (202 lb). Last 5 Encounter BP Readings: Date: BP: 10/13/2022 132/78 07/27/2022 110/68 07/23/2021 111/69 07/22/2021 112/78 11/04/2020 118/76 Physical Exam Vitals reviewed. Constitutional: Appearance: Normal appearance. She is well-developed. HENT: Head: Normocephalic and atraumatic. Right Ear: Tympanic membrane, ear canal and external ear normal. Left Ear: Tympanic membrane, ear canal and external ear normal. Nose: Nose normal. Eyes: Conjunctiva/sclera: Conjunctivae normal. Neck: Thyroid: No thyromegaly. Vascular: No carotid bruit. Cardiovascular: Rate and Rhythm: Normal rate and regular rhythm. Pulses: Normal pulses. Heart sounds: Normal heart sounds. No murmur heard. No friction rub. No gallop. Pulmonary: Effort: Pulmonary effort is normal. Breath sounds: Normal breath sounds. Abdominal: General: Bowel sounds are normal. There is no distension. Palpations: Abdomen is soft. There is no mass. Tenderness: There is no abdominal tenderness. Musculoskeletal: General: No deformity. Normal range of motion. Right lower leg: No edema. Left lower leg: No edema. Lymphadenopathy: Cervical: No cervical adenopathy. Skin: General: Skin is warm and dry. Coloration: Skin is not jaundiced or pale. Findings: No rash. Neurological: General: No focal deficit present. Mental Status: She is alert and oriented to person, place, and time. Cranial Nerves: No cranial nerve deficit. Sensory: No sensory deficit. Motor: No abnormal muscle tone. Coordination: Coordination normal. Deep Tendon Reflexes: Reflexes normal. Psychiatric: Attention and Perception: Attention and perception normal. Mood and Affect: Mood and affect normal. Speech: Speech normal. Behavior: Behavior normal. Thought Content: Thought content normal. Judgment: Judgment normal. Latest Ref Rn 07/22/2020 07/21/2021 07/27/2022 Protein, Total 6.3 - 8.0 g/dL 7.1 7.1 Albumin 3.9 - 4.9 g/dL 4.4 4.2 Calcium 8.5 - 10.2 mg/dL 9.2 9.0 9.0 Bilirubin, Total 0.2 - 1.3 mg/dL 0.6 0.4 Alkaline Phosphatase 34 - 123 U/L 72 80 AST 13 - 35 U/L 17 27 Glucose 74 - 99 mg/dL 91 90 92 BUN 7 - 21 mg/dL 13 12 11 Creatinine 0.58 - 0.96 mg/dL 0.84 0.83 0.84 Sodium 136 - 144 mmol/L 140 138 138 Potassium 3.7 - 5.1 mmol/L 4.3 4.8 4.2 Chloride 97 - 105 mmol/L 106 (H) 104 105 CO2 22 - 30 mmol/L 28 26 23 Anion Gap 9 - 18 mmol/L 6 (L) 8 (L) 10 ALT 7 - 38 U/L 10 15 eGFR- >60 eGFR-All Other Races . >60 eGFR >=60 mL/min/1.73m 89 87 WBC 3.70 - 11.00 k/uL 5.42 RBC 3.90 - 5.20 m/uL 4.61 Hemoglobin 11.5 - 15.5 g/dL 14.1 Hematocrit 36.0 - 46.0 % 42.6 MCV 80.0 - 100.0 fL 92.4 MCH 26.0 - 34.0 pg 30.6 MCHC 30.5 - 36.0 g/dL 33.1 RDW-CV 11.5 - 15.0 % 13.1 Platelet Count 150 - 400 k/uL 229 MPV 9.0 - 12.7 fL 12.0 Absolute nRBC <0.01 k/uL <0.01 Cholesterol, Total <200 mg/dL 186 Triglyceride <150 mg/dL 85 HDL Cholesterol >39 mg/dL 51 Non HDL Cholesterol <130 mg/dL 135 (H) Fasting Time hrs 12 VLDL Cholesterol <30 mg/dL 17 TC:HDL Ratio <5.10 3.65 LDL Cholesterol <100 mg/dL 118 (H) LDL:HDL Ratio <2.54 2.31 Hemoglobin A1C 4.3 - 5.6 % 5.3 Estimated Average Glucose mg/dL 105 Legend: (H) High (L) Low Assessment and Plan Encounter Diagnosis ICD-10-CM 1. Routine medical exam Z00.00 2. Essential hypertension I10 amLODIPine (NORVASC) 5 mg tablet Controlled. Continue present management 3. Breast cancer screening by mammogram Z12.31 AAYUSH SCREENING W CARLY 4. Encounter for long-term current use of medication Z79.899 amLODIPine (NORVASC) 5 mg tablet Above issues addressed with patient. Patient involved in shared decision making for management of medical issues. History and medications reviewed. Epic updated as needed Refills and/or prescriptions taken care of and meds adjusted as indicated after reviewed history, exam and labs. Health Maintenance reviewed. Updated record and/or ordered tests as recorded. Encouraged on efforts at healthy diet and regular exercise and adequate sleep. Needs to keep working on diet and exercise with lifestyle changes for effective weight loss as well as prevention of DM, and control of BP and lipids. Chance Harrell MD documented in this encounter [facility] 10-13-2022 History of Present illness Narrative SUBJECTIVE Divya Skelton is a 47 year old female here today for acute concern. Chief Complaint Patient presents with: Ear Problem: in right ear for about 2 weeks Throat Problem: feels like there is phlegm in throat more so in the am HPI Divya Skelton is a 47 year old female established patient of Chance Harrell MD who is here acutely for concerns of a right ear problem. She is noticing a tinnitus, described as feeling like fluid in the ear. Right ear only, not painful. Improving slowly, onset about 2 weeks ago with a URI. No issues hearing. Still noticing some phlegm in her throat too, worse in the am. Tried claritin. Not helpful. Her medications were reviewed today and her list is now up to date. Medications Current Outpatient Medications Medication Sig amLODIPine (NORVASC) 5 mg tablet Take 1 tablet by mouth once daily. Norethindrone, Contraceptive, 0.35 mg tablet Take 1 tablet by mouth once daily. methylPREDNISolone (MEDROL, LES,) 4 mg Dose-Pack Follow dosing instructions, take with food. No current facility-administered medications for this visit. ALLERGIES No Known Allergies ACTIVE PROBLEM LIST Obesity, Class I, Bmi 30-34.9 - 05/08/2018 Essential Hypertension - 04/18/2018 Avulsion of Toenail - 07/02/2011 Allergic Rhinitis, Cause Unspecified - 08/20/2005 Social History Tobacco Use Smoking status: Never Smokeless tobacco: Never Substance Use Topics Alcohol use: Yes Comment: rare use, no current Drug use: No Review of Systems HENT: Positive for postnasal drip and tinnitus. Negative for ear discharge, ear pain, sinus pressure, sinus pain, sore throat and trouble swallowing. Respiratory: Negative. Cardiovascular: Negative. OBJECTIVE BP 132/78 Pulse 78 Wt 209 lb (94.8kg) SpO2 99% LMP 09/08/2022 Physical Exam Vitals and nursing note reviewed. Constitutional: General: She is awake. She is not in acute distress. Appearance: Normal appearance. She is well-developed and well-groomed. She is not ill-appearing, toxic-appearing or diaphoretic. HENT: Head: Normocephalic. Right Ear: Hearing, ear canal and external ear normal. A middle ear effusion is present. Tympanic membrane is not injected or erythematous. Left Ear: Hearing, tympanic membrane, ear canal and external ear normal. Nose: Congestion present. No mucosal edema or rhinorrhea. Right Sinus: No maxillary sinus tenderness or frontal sinus tenderness. Left Sinus: No maxillary sinus tenderness or frontal sinus tenderness. Mouth/Throat: Pharynx: Oropharynx is clear. Eyes: General: Vision grossly intact. Conjunctiva/sclera: Conjunctivae normal. Pupils: Pupils are equal, round, and reactive to light. Neck: Vascular: No JVD. Trachea: Trachea normal. Cardiovascular: Rate and Rhythm: Normal rate and regular rhythm. Pulses: Normal pulses. Heart sounds: Normal heart sounds. No murmur heard. Pulmonary: Effort: Pulmonary effort is normal. No accessory muscle usage, prolonged expiration or respiratory distress. Breath sounds: Normal breath sounds. Musculoskeletal: Cervical back: Neck supple. Skin: General: Skin is warm and dry. Capillary Refill: Capillary refill takes less than 2 seconds. Neurological: General: No focal deficit present. Mental Status: She is alert and oriented to person, place, and time. Mental status is at baseline. Psychiatric: Attention and Perception: Attention and perception normal. Mood and Affect: Mood and affect normal. Speech: Speech normal. Behavior: Behavior normal. Behavior is cooperative. Thought Content: Thought content normal. Cognition and Memory: Cognition and memory normal. Judgment: Judgment normal. ASSESSMENT/PLAN: 1. Acute effusion of right ear - ICD9: 381.00, ICD10: H65.191 (primary diagnosis) No sign of infection, will start a medrol dose pack to try and alleviate the effusion, likely the result of her recent URI. Can try x1-2 weeks of Claritin if she desires, can add Flonase if needed. - METHYLPREDNISOLONE 4 MG TABLETS IN A DOSE PACK 2. Post-nasal drainage - ICD9: 473.9, ICD10: R09.82 See above. - METHYLPREDNISOLONE 4 MG TABLETS IN A DOSE PACK Portions of this note have been entered by ancillary staff. I have reviewed and when necessary edited, so that they are an adequate record of my encounter with this patient Please note that parts of this document were created using voice recognition software and therefore may contain grammatical errors. Patient verbalizes understanding of instructions from today's visit and in agreement with treatment plan. Questions answered. Agrees to call the office if questions, concerns of issues with acute symptoms not improving or if they worsen. Return if symptoms worsen or fail to improve, for Keep next scheduled appointment.. ROMARIO Sun documented in this encounter [facility] 10-12-2022 Miscellaneous Notes Patient call in for ringing in Right Ear. Nurse Triage assessment completed with protocol recommending for disposition of See PCP in 3 days. Care advice reviewed with patient, patient stated understanding. Reason for Disposition MODERATE-SEVERE tinnitus (i.e., interferes with work, school, or sleep) Answer Assessment - Initial Assessment Questions 1. DESCRIPTION: Chastity of like a hissing sound. 2. LOCATION: Right Ear 3. SEVERITY: Moderate; Patient states that it is louder at night 4. ONSET: 10 days ago; came on gradually 5. PATTERN: At first ears were plugged, but ringing of ear continues. 6. HEARING LOSS: Decreased in right ear. 7. OTHER SYMPTOMS: Had ear ache at first, none currently 8. : Protocols used: [id number] documented in this encounter [facility] 07-27-2022 History of Present illness Narrative This note was created using Sitestarriter. Subjective Divya Skelton is a 46 year old female. HISTORY Divya Skelton is a 46 year old lady here for yearly exam and follow up appointment. Overall doing well. No acute concerns. PAST MEDICAL HISTORY Diagnosis Date ALLERGIC RHINITIS NOS 08/20/2005 Essential hypertension 04/18/2018 Current Outpatient Medications Medication Sig amLODIPine (NORVASC) 5 mg tablet Take 1 tablet by mouth once daily. Norethindrone, Contraceptive, 0.35 mg tablet Take 1 tablet by mouth once daily. No current facility-administered medications for this visit. ALLERGIES No Known Allergies FAMILY HISTORY Problem Relation Age of Onset Diabetes Father diet controlled Breast Cancer Maternal Grandmother Social History Tobacco Use Smoking status: Never Smokeless tobacco: Never Substance Use Topics Alcohol use: Yes Comment: rare use, no current Drug use: No Review of Systems Objective BP 110/68 Pulse 68 Temp 36.4 C (97.6 F) Resp 18 Ht 164.5 cm (5' 4.76) Wt 91.2 kg (201 lb) LMP 07/13/2022 (Approximate) SpO2 98% BMI 33.69 kg/m Last 5 Encounter Wt Readings: Date: Wt: 07/27/2022 91.2 kg (201 lb) 07/22/2021 86.2 kg (190 lb) 11/04/2020 88.9 kg (196 lb) 07/22/2020 86.6 kg (191 lb) 11/14/2019 87.5 kg (193 lb) No waist measurement recorded Estimated body mass index is 33.69 kg/m as calculated from the following: Height as of this encounter: 164.5 cm (5' 4.76). Weight as of this encounter: 91.2 kg (201 lb). Last 5 Encounter BP Readings: Date: BP: 07/27/2022 110/68 07/23/2021 111/69 07/22/2021 112/78 11/04/2020 118/76 07/22/2020 114/80 Physical Exam Vitals reviewed. Constitutional: Appearance: Normal appearance. She is well-developed. She is obese. HENT: Head: Normocephalic and atraumatic. Right Ear: External ear normal. Left Ear: External ear normal. Nose: Nose normal. Eyes: Conjunctiva/sclera: Conjunctivae normal. Neck: Thyroid: No thyromegaly. Cardiovascular: Rate and Rhythm: Normal rate and regular rhythm. Pulses: Normal pulses. Heart sounds: Normal heart sounds. No murmur heard. No friction rub. No gallop. Pulmonary: Effort: Pulmonary effort is normal. Breath sounds: Normal breath sounds. Abdominal: General: Bowel sounds are normal. There is no distension. Palpations: Abdomen is soft. There is no mass. Tenderness: There is no abdominal tenderness. Musculoskeletal: General: No deformity. Normal range of motion. Lymphadenopathy: Cervical: No cervical adenopathy. Skin: General: Skin is warm and dry. Coloration: Skin is not jaundiced or pale. Findings: No rash. Neurological: General: No focal deficit present. Mental Status: She is alert and oriented to person, place, and time. Cranial Nerves: No cranial nerve deficit. Sensory: No sensory deficit. Motor: No abnormal muscle tone. Coordination: Coordination normal. Deep Tendon Reflexes: Reflexes normal. Psychiatric: Attention and Perception: Attention and perception normal. Mood and Affect: Mood and affect normal. Speech: Speech normal. Behavior: Behavior normal. Thought Content: Thought content normal. Cognition and Memory: Cognition and memory normal. Judgment: Judgment normal. Labs ordered today. Will come back. Assessment and Plan Encounter Diagnosis ICD-10-CM 1. Routine medical exam Z00.00 COMP METABOLIC PANEL CBC LIPID PANEL BASIC 2. Essential hypertension I10 amLODIPine (NORVASC) 5 mg tablet COMP METABOLIC PANEL CBC LIPID PANEL BASIC 3. Encounter for long-term current use of medication Z79.899 amLODIPine (NORVASC) 5 mg tablet COMP METABOLIC PANEL CBC LIPID PANEL BASIC Patient here for yearly exam and follow up. Above issues addressed with patient. Patient involved in shared decision making for management of medical issues. History and medications reviewed. Epic updated as needed Refills taken care of and meds adjusted as indicated after reviewed history, exam and labs. Health Maintenance reviewed. Updated record and/or ordered tests as recorded. Encouraged on efforts at healthy diet and regular exercise and adequate sleep. Needs to keep working on diet and exercise with lifestyle changes for effective weight loss as well as prevention of DM, and control of BP and lipids. BP controlled. Continue present management. Not as much exercise as needed and needs to work on diet, but with going back to school, has not been easy. Work on making some easy changes. Further evaluation and treatment as indicated. Chance Harrell MD documented in this encounter [facility] 05-26-2022 Miscellaneous Notes Patient has been identified by name and date of : Yes, Patient phones for refill(s): Requested Prescriptions Pending Prescriptions Disp Refills amLODIPine (NORVASC) 5 mg tablet 90 tablet 3 Sig: Take 1 tablet by mouth once daily. Date of last office visit in primary care: 07/22/2021 Yearly: 07/27/2022 Last 2 Encounter Wt Readings: Date: Wt: 07/22/2021 86.2 kg (190 lb) 11/04/2020 88.9 kg (196 lb) Previous labs/tests for medication: Blood Pressure: BUN (mg/dL) Date Value 07/21/2021 12 07/22/2020 13 Sodium (mmol/L) Date Value 07/21/2021 138 07/22/2020 140 Last 1 Encounter BP Readings: Date: BP: 07/23/2021 111/69 Please advise. Thank you. Nay Yeboah LPN documented in this encounter [facility] Evaluation note No assessment inform ation available [facility] Work Phone: Evaluation note Diagnosis Essential hypertension Unspecified essential hypertension Encounter for long-term current use of medication [facility] Routine medical exam- Primary Routine general medical examination at a health care facility Essential hypertension Unspecified essential hypertension Encounter for long-term current use of medication [facility] Acute effusion of right ear- Primary Post-nasal drainage Unspecified sinusitis (chronic) [facility] Routine medical exam- Primary Routine general medical examination at a [facility] facility Essential hypertension Unspecified essential hypertension Breast cancer screening by mammogram Encounter for long-term current use of medication [facility] Burning with urination- Primary Dysuria Urinary tract infection with hematuria, site unspecified [facility] Diagnosis Essential hypertension Unspecified essential hypertension Encounter for long-term current use of medication [facility] Diagnosis Encounter for screening mammogram for breast cancer- Primary [facility] Diagnostic Procedure Only (Routine) - Pending Review Specialty Diagnoses / Procedures Referred By Tila t Referred To Contact [facility] Diagnoses Breast cancer screening by mammogram Procedures AAYUSH SCREENING W CARLY SCREENING DIGITAL BREAST TOMOSYNTHESIS BI SCREENING MAMMOGRAPHY BI 2-VIEW BREAST INC CAD Chance Harrell MD [address] [place] [address] [facility] [address] [place] [address] Referral ID Status Reason Start Date Expiration Date Visits Requested Visits Authorized [id number] Pending Review Auto-Generat ed Referral 07/28/2023 08/26/2024 1 1 [facility] Summary Purpose Family History No Family History Records FoundNo Family History Records FoundNo Family History Records FoundNo Family History Records Found Advance Directives No Advanced Directives Records FoundNo Advanced Directives Records FoundNo Advanced Directives Records FoundNo Advanced Directives Records Found Chief Complaint and Reason for Visit Chief Complaint SCREENING Additional Source Comments INFORMATION SOURCE (unrecogn ized section and content) DATE CREATED AUTHOR 01/05/2021 [facility] DATE CREATED AUTHOR AUTHOR'S ORGANIZ ATION 01/11/2021 [facility] DATE CREATED AUTHOR AUTHOR'S ORGANIZ ATION 12/15/2024 [facility] DATE CREATED AUTHOR AUTHOR'S ORGANIZ ATION 12/21/2024 [facility] Goals (unrecognized section and content) Goals may be documented in a n alternate sectionGoals may be documented in an alternate section Source Comments (unrecognize d section and content) In the event this informatio n is protected by the Federal Confidentiality of Alcohol and Drug Abuse Patient Records regulations: The Federal rules restrict any use of the information to criminally investigate or prosecute any alcohol or drug abuse patient.[facility] the event this information is protected by the Federal Confidentiality of Alcohol and Drug Abuse Patient Records regulations: The Federal rules restrict any use of the information to criminally investigate or prosecute any alcohol or drug abuse patient.[facility] the event this information is protected by the Federal Confidentiality of Alcohol and Drug Abuse Patient Records regulations: The Federal rules restrict any use of the information to criminally investigate or prosecute any alcohol or drug abuse patient.[facility] the event this information is protected by the Federal Confidentiality of Alcohol and Drug Abuse Patient Records regulations: The Federal rules restrict any use of the information to criminally investigate or prosecute any alcohol or drug abuse patient.[facility] Center[facility] the event this information is protected by the Federal Confidentiality of Alcohol and Drug Abuse Patient Records regulations: The Federal rules restrict any use of the information to criminally investigate or prosecute any alcohol or drug abuse patient.[facility] Center[facility] the event this information is protected by the Federal Confidentiality of Alcohol and Drug Abuse Patient Records regulations: The Federal rules restrict any use of the information to criminally investigate or prosecute any alcohol or drug abuse patient.[facility] Center[facility] the event this information is protected by the Federal Confidentiality of Alcohol and Drug Abuse Patient Records regulations: The Federal rules restrict any use of the information to criminally investigate or prosecute any alcohol or drug abuse patient.[facility] the event this information is protected by the Federal Confidentiality of Alcohol and Drug Abuse Patient Records regulations: The Federal rules restrict any use of the information to criminally investigate or prosecute any alcohol or drug abuse patient.[facility] Center[facility] the event this information is protected by the Federal Confidentiality of Alcohol and Drug Abuse Patient Records regulations: The Federal rules restrict any use of the information to criminally investigate or prosecute any alcohol or drug abuse patient.[facility] CenterIn the event this information is protected by the Federal Confidentiality of Alcohol and Drug Abuse Patient Records regulations: The Federal rules restrict any use of the information to criminally investigate or prosecute any alcohol or drug abuse patient.[facility] Center[facility] the event this information is protected by the Federal Confidentiality of Alcohol and Drug Abuse Patient Records regulations: The Federal rules restrict any use of the information to criminally investigate or prosecute any alcohol or drug abuse patient.[facility] CenterIn the event this information is protected by the Federal Confidentiality of Alcohol and Drug Abuse Patient Records regulations: The Federal rules restrict any use of the information to criminally investigate or prosecute any alcohol or drug abuse patient.[facility] Reason for Visit (unrecogniz ed section and content) Reason Onset Date Comments Refill Request 05/26/2022 Reason Comments Yearly Exam Specialty Diagnoses / Procedures Referred By Contac t Referred To Contact Internal Medicine / INTERNAL MEDICINE Diagnoses PE (physical exam), annual yearly Procedures OFFICE/OUTPATIENT ESTABLISHED MOD MDM 30-39 MIN 4C EST WELL Chance Harrell MD [address] [place] [address] Chance Harrell MD [address] [place] [address] Referral ID Status Reason Start Date Expiration Date Visits Re quested Visits Authorized [id number] Closed 07/27/2022 04/25/2023 1 1 Reason Comments Right Ear Plugged Right ear ringing Reason Comments Ear Problem in right ear for abo ut 2 weeks Throat Problem feels like there is phlegm in throat more so in the am Specialty Diagnoses / Procedures Referred By Contac t Referred To Contact Internal Medicine / INTERNAL MEDICINE Diagnoses Ringing in right ear Ringing in Right ear Procedures OFFICE/OUTPATIENT ESTABLISHED MOD MDM 30-39 MIN 4C EST Chance Harrell MD [address] [place] [address] Aby Cloud APRN.[facility] [address] [place] [address] Referral ID Status Reason Start Date Expiration Date Visits Re quested Visits Authorized [id number] Closed 10/13/2022 04/25/2023 1 1 Reason Onset Date Comments Yearly Exam Radiology Mammogram 07/28/2023 at [facility] Specialty Diagnoses / Procedures Referred By Tila t Referred To Contact Internal Medicine / INTERNAL MEDICINE Diagnoses Annual Procedures 4C [place] [address] [place] [id number] Chance Harrell MD [address] [place] [phone] Referral ID Status Reason Start Date Expiration Date V isits Requested Visits Authorized [id number] Pending Review 07/28/2023 10/26/2023 1 1 Reason Comments Faxed to [facility] Reason Comments Insurance Authorization Reason Comments Opened In Error Reason Comments burning with urination Burning x 3 days Reason Onset Date Comments Refill Request 08/29/2024 Reason Comments Orders Mammogram for [facility] Care Teams (unrecognized sec tion and content) Sales Representative Advertising Relationship Specialty Start Date End Date Chance Harrell MD [address] [place] [phone] PCP - General Internal Medicine 05/15/20 Sales Representative Advertising Relationship Specialty Start Date End Date Chance Harrell MD [address] [place] [address] PCP - General Internal Medicine 05/15/20 Sales Representative Advertising Relationship Specialty Start Date End Date Chance Harrell MD [address] [place] [address] PCP - General Internal Medicine 05/15/20 Sales Representative Advertising Relationship Specialty Start Date End Date Chance Harrell MD [address] [place] [address] PCP - General Internal Medicine 05/15/20 Team Status: Active Member Role Status Dates Dr. Chance Harrell MD Family Provider Active Dr. Chance Harrell MD Primary Care Provider Active Team Status: Inactive Member Role Status Dates Dr. Chance Harrell MD Primary Care Provider Active Dr. Anna Lainez DO Attending Provider, [facility] Active Sales Representative Advertising Relationship Specialty Start Date End Date Chance Harrell MD [address] [place] [address] PCP - General Internal Medicine 05/15/20 Sales Representative Advertising Relationship Specialty Start Date End Date Chance Harrell MD [address] [place] [address] PCP - General Internal Medicine 05/15/20 Sales Representative Advertising Relationship Specialty Start Date End Date Chance Harrell MD [address] [place] [address] PCP - General Internal Medicine 05/15/20 Sales Representative Advertising Relationship Specialty Start Date End Date Chance Harrell MD [address] [place] [address] PCP - General Internal Medicine 05/15/20 Daina Mccray APRN.QUANTITATIVE ANALYST [address] [facility] [place] [address] Mime Artist Internal Medicine 04/03/24 Aby Cloud APRN.WEDGER [address] [facility] [place] [address] Mime Artist Internal Medicine 07/18/24 Sales Representative Advertising Relationship Specialty Start Date End Date Chance Harrell MD [address] [facility] [place] [address] PCP - General Internal Medicine 05/15/20 Daina Mccray STRANDING MACHINE OPERATOR HELPER.QUANTITATIVE ANALYST [address] [facility] [place] [address] Mime Artist Internal Medicine 04/03/24 Aby Cloud APRN.WEDGER [address] [facility] [place] [address] Mime Artist Internal Medicine 07/18/24 Sales Representative Advertising Relationship Specialty Start Date End Date Chance Harrell MD [address] [facility] [place] [address] PCP - General Internal Medicine 05/15/20 Daina Mccray STRANDING MACHINE OPERATOR HELPER.QUANTITATIVE ANALYST [address] [facility] [place] [address] Mime Artist Internal Medicine 04/03/24 09/12/24 Aby Cloud STRANDING MACHINE OPERATOR HELPER.WEDGER [address] [place] [address] Mime Artist Internal [facility] 07/18/24 Daina Mccray, ALICIA.QUANTITATIVE ANALYST [address] [place], [place] [id number] [facility] 09/13/24 Sales Representative Advertising Relationship Specialty Start Date End Date Chance Harrell MD [address] [place], [place] [address] PCP - General Internal Medicine 05/15/20 Aby Cloud STRANDING MACHINE OPERATOR HELPER.WEDGER [address] [place], [place] [id number] [facility] Internal [facility] 07/18/24 Daina Mccray, ALICIA.QUANTITATIVE ANALYST [address] [place], [place] [address] [facility] 09/13/24 FOR RECORDS PERTAINING TO PATIENTS WHO ARE OR HAVE BEEN ENROLLED IN A CHEMICAL DEPENDENCY/SUBSTANCEABUSE PROGRAM, SOME INFORMATION MAY BE OMITTED. This clinical summary was aggregated from multiple sources. Caution should be exercised in using it in the provision of clinical care. This summary normalizes information from multiple sources, and as a consequence, information in this document may materially change the coding, format and clinical context of patient data. In addition, data may be omitted in some cases. CLINICAL DECISIONS SHOULD BE BASED ON THE PRIMARY CLINICAL RECORDS. [facility] provides no warranty or guarantee of the accuracy or completeness of information in this document.
== END | disposition home or self-care (01) ==
LOC: OPBI 07:21
PROVIDERS: PCP Internal Medicine; Referring Provider Internal Medicine; Visit Provider Internal Medicine
DX: Z12.31 Encounter for screening mammogram for malignant neoplasm of breast (principal)
CPT/HCPCS: 77063; 77067